=== PATIENT | female | born 1940 | race Caucasian/White ===

== ENCOUNTER → 2016-09-17 | Outpatient (CLI) | payer MEDICARE, BC ==
[2016-09-17 12:56] LABS: Basophils % (A) 0 %; CH 32.1; CHCM 34.3; Eosinophils # (A) 0.2 k/uL (0-0.7); Eosinophils % (A) 3 %; HCT 40.9 % (34.0-46.0); HDW 2.79; HGB 13.9 gm/dL (11.4-16.0); Luc # (Auto) 0.15; Luc % (Auto) 2; Lymphocytes # (A) 1.4 k/uL (1.0-4.8); Lymphocytes % (A) 22 %; MCH 32.1 pg (25.0-35.0); MCHC 34.1 g/dL (31.0-37.0); Mean Platelet Volume 6.9; Monocytes # (A) 0.4 k/uL (0-1.0); Monocytes % (A) 6 %; Neutrophils # (A) 4.2 k/uL (1.3-7.7); Neutrophils % (A) 66 %; RBC 4.35 m/uL (3.80-5.40); RDW 12.3 % (11.5-15.5); WBC 6.3 k/uL (3.8-10.6); WBC (Perox) 6.33
[2016-09-17 16:21] LABS: Erythrocyte Sedimentation Rate 4 mm/hr (0-20)
== END | disposition home or self-care (01) ==
LOC: LABWHC1 12:07
PROVIDERS: ATTEND Orthopaedic Surgery Foot and Ankle Surgery
DX: S92.062D Displaced intraarticular fracture of left calcaneus, subsequent encounter for fracture with routine healing (principal); M19.172 Post-traumatic osteoarthritis, left ankle and foot
CPT/HCPCS: 36415; 85025; 85652; 86140

== ENCOUNTER → 2016-09-21 | Outpatient (CLI) | payer MEDICARE, BC ==
--- NOTE | 2016-09-21 19:51 | CT ---
EXAMINATION TYPE: CT foot LT wo con DATE OF EXAM: 09/21/2016 6:31 PM COMPARISON: 01/23/2015 HISTORY: Left heel pain CT DLP: 151.4 mGycm Automated exposure control for dose reduction was used. FINDINGS: There is hardware fixing an old fracture of the calcaneus. There is extensive osteoarthritis on both sides of the subtalar joint. There are erosions and cystic changes. The ankle mortise is anatomic. Th e tarsal bones appear intact. The metatarsals are intact. There is slight deformity of the distal fif th metatarsal that could relate to an old healed fracture. IMPRESSION: THERE IS MODERATELY SEVERE POSTTRAUMATIC SUBTALAR JOINT OSTEOARTHRITIS. OLD HEALED FRACTURE OF THE CA LCANEUS. THERE IS SATISFACTORY HEALING OF THE FRAGMENTS COMPARED TO OLD EXAM. THERE IS SOME MILD OSTEOARTHRITIS AT THE FIRST MP JOINT. THERE IS PROBABLY AN OLD HEALED FRACTURE DIS SAUL FIFTH METATARSAL.
== END | disposition home or self-care (01) ==
LOC: RADCTMAIN 17:52
PROVIDERS: ATTEND Orthopaedic Surgery Foot and Ankle Surgery
DX: M19.172 Post-traumatic osteoarthritis, left ankle and foot (principal); M19.072 Primary osteoarthritis, left ankle and foot

== ENCOUNTER → 2016-12-15 | Outpatient (CLI) | payer MEDICARE, BC ==
--- NOTE | 2016-12-15 11:15 | MM ---
Reason for exam: follow-up at short interval from prior study. Last mammogram was performed 1 year ago. History: Patient is postmenopausal. Benign US breast aspiration single LT of the left breast, November 19, 2014. Cyst aspiration of the left breast. Cyst aspiration of the right breast. 2 excisional biopsies of the left breast. Excisional biopsy of the right breast. Took estrogen for 24 years. Took progesterone for 24 years. Physical Findings: Nurse did not find any significant physical abnormalities on exam. MG 3D Diag Mammo W/Cad CRISTY Bilateral CC and MLO view(s) were taken. LM, MLO with magnification, and CC with magnification view(s) were taken of the left breast. Prior study comparison: May 07, 2016, right breast US breast RT. December 13, 2015, right breast US breast RT. December 06, 2015, bilateral MG 3d diag mammo w/cad CRISTY. October 26, 2014, bilateral MG screening mammo w CAD. The breast tissue is heterogeneously dense. This may lower the sensitivity of mammography. Finding #1: There is a 25 mm circumscribed round mass in the left breast. Finding #2: There are typically benign vascular calcifications in both breasts. Previous mammotome biopsy in the left breast. There is a chronic nodularity bilaterally. Suspicious heterogeneous group of calcifications in the left breast middle posterior depth upper slight medial aspect, new from old studies. Increase in size but history of multiple cysts bilaterally since May 07, 2016, December 13, 2015, December 06, 2015, and October 26, 2014. These results were verbally communicated with the patient and result sheet given to the patient on 12/15/16. ASSESSMENT: Suspicious, BI-RAD 4 RECOMMENDATION: Stereotactic core biopsy of the left breast. Called Dr. Castellanos with mammographic findings and has scheduled an appointment for the patient for 12/22/16 at 10:[address] De La Garza. PRELIMINARY REPORT CALLED AND FAXED TO DR. DE LA GARZA ON 12/15/16/TP.
--- NOTE | 2016-12-15 11:21 | USB ---
Reason for exam: follow-up at short interval from prior study. History: Patient is postmenopausal. Benign US breast aspiration single LT of the left breast, November 19, 2014. Cyst aspiration of the left breast. Cyst aspiration of the right breast. 2 excisional biopsies of the left breast. Excisional biopsy of the right breast. Took estrogen for 24 years. Took progesterone for 24 years. US Breast RT Right breast ultrasound includes all four quadrants, the retroareolar region and axilla. Finding demonstrates a 0.3 x 0.7 x 0.5cm cluster too small to characterize at 2 o'clock, a 0.6 x 0.5 x 0.4cm oval, irregular, cystic lesion at 7 o'clock, a 0.7 x 0.6 x 0.3cm oval, irregular, hypoechoic lesion at 7 o'clock, a 0.5 x 0.4 x 0.4cm oval, cystic lesion at 8 o'clock, a 0.7 x 0.8 x 0.7cm oval, irregular, cystic lesion at 9 o'clock, a 1.3 x 1.1 x 0.7cm oval, cystic lesion at 10 o'clock, a 1.7 x 1.4 x 1.0cm cystic, oval lesion at the right nipple retroareolar position and a 0.8 x 0.3 x 0.3cm mixed, oval lesion at the retroareolar position. These results were verbally communicated with the patient and result sheet given to the patient on 12/15/16. ASSESSMENT: Benign, BI-RAD 2 RECOMMENDATION: Stereotactic core biopsy. (left breast) Called Dr. Castellanos with mammographic findings and has scheduled an appointment for the patient for 12/22/16 at 10:[address] De La Garza. PRELIMINARY REPORT CALLED AND FAXED TO DR. DE LA GARZA ON 12/15/16/TP.
== END | disposition home or self-care (01) ==
LOC: RADMAMWWP 08:57
PROVIDERS: ATTEND Family Medicine
DX: R92.8 Other abnormal and inconclusive findings on diagnostic imaging of breast (principal)
CPT/HCPCS: 76641; G0204; G0279

== ENCOUNTER → 2016-12-29 | Day surgery (SDC) | payer MEDICARE, BC ==
[2016-12-29 07:52] VITALS: RESP 16; BMI 22.6
[2016-12-29 09:04] VITALS: BP 152/79; PULSE 61; TEMP 97.3
--- NOTE | 2016-12-29 16:53 | MM ---
EXAMINATION TYPE: MG stereo VAD BX LT DATE OF EXAM: 12/29/2016 COMPARISON: 12/15/2016 CLINICAL HISTORY: 76-year-old female referred for biopsy left breast microcalcifications. TECHNIQUE: Stereotactic guided core biopsy of the left breast. FINDINGS: The procedure of stereotactic guided core biopsy was explained to the patient. Benefits, a lternatives, and risks were discussed. An informed consent was then obtained. The shortness pathway for biopsy was chosen. Shortness pathway was a CC from above approach. I perfo rmed the localization, then surgeon, Dr. De La Garza performed the remainder of the procedure. A vacu um assisted biopsy gun was used to obtain 5 core samples. The patient tolerated the procedure well without any immediate complication. The patient was kept in the radiology department for short stay after the procedure and then discharged home in stable condi tion. Targeted calcifications are identified in specimen mammogram. Post biopsy mammogram shows slight 5 to 10 mm of superior migration. Some residual microcalcification s kevin the site of biopsy. IMPRESSION: SUCCESSFUL, UNCOMPLICATED STEREOTACTIC GUIDED CORE BIOPSY OF 10:00 LEFT BREAST MICROCALCIFICATIONS. N OTE SLIGHT 5 TO 10 MM OF SUPERIOR CLIP MIGRATION; FULL PATHOLOGY RESULTS TO FOLLOW.
--- NOTE | 2016-12-30 06:38 | PCN ---
PREPROCEDURE DIAGNOSIS: Suspicious mammogram calcification left breast. POSTPROCEDURE DIAGNOSIS: Defer to pathology. PROCEDURE: Mammotome biopsy, clip application. This patient presented with abnormal mammogram. Left breast showed suspicious calcification. The patient was taken to [facility], placed on the mammotome table in prone position. After coordinates were obtained by the radiologist, the skin was cleaned with Betadine and infiltrating the skin with Marcaine 0.25% plain, the mammotome needle was advanced according to the coordinates. Multiple cores were taken. A clip was placed for further identification of the area. The core x-ray showed all the calcification in the specimen. The patient tolerated the procedure well. KALYAN
== END ==
LOC: RADMAMWWP 07:23
PROVIDERS: ATTEND Surgery
DX: N60.32 Fibrosclerosis of left breast (principal); R92.8 Other abnormal and inconclusive findings on diagnostic imaging of breast; N64.89 Other specified disorders of breast; N60.82 Other benign mammary dysplasias of left breast; Z88.2 Allergy status to sulfonamides; R92.0 Mammographic microcalcification found on diagnostic imaging of breast
CPT/HCPCS: 88305; 88342; 88341; 19081; A4648; J2001

== ENCOUNTER → 2017-10-21 | Outpatient (CLI) | payer MEDICARE, BC ==
--- NOTE | 2017-10-21 13:46 | MM ---
Reason for exam: additional evaluation requested from prior study. Last mammogram was performed 10 months ago. History: Patient is postmenopausal and has history of breast cancer at age 76. Malignant MG stereo VAD BX LT of the left breast, December 29, 2016. Benign US breast aspiration single LT of the left breast, November 19, 2014. Cyst aspiration of the left breast. Cyst aspiration of the right breast. 2 excisional biopsies of the left breast. Excisional biopsy of the right breast. Taking estrogen for 24 years. Taking progesterone for 24 years. Physical Findings: Nurse did not find any significant physical abnormalities on exam. MG 3D Diag Mammo W/Cad CRISTY Bilateral CC and MLO view(s) were taken. Prior study comparison: December 15, 2016, bilateral MG 3d diag mammo w/cad CRISTY. December 06, 2015, bilateral MG 3d diag mammo w/cad CRISTY. Finding #1: Ne architectural distortion in the upper inner quadrant, posterior position of the left breast consistent with known interval lumpectomy. Finding #2: There are typically benign vascular calcifications in both breasts. Previous mammotome biopsy in the left breast. There is no discrete abnormality. These results were verbally communicated with the patient and result sheet given to the patient on 10/21/17. ASSESSMENT: Benign, BI-RAD 2 RECOMMENDATION: Follow-up diagnostic mammogram of both breasts in 1 year.
== END | disposition home or self-care (01) ==
LOC: RADMAMWWP 12:44
PROVIDERS: ATTEND Family Medicine
DX: N60.11 Diffuse cystic mastopathy of right breast (principal); N60.12 Diffuse cystic mastopathy of left breast
CPT/HCPCS: 77066; G0279; 77062

== ENCOUNTER → 2017-11-11 | Outpatient (CLI) | payer MEDICARE, BC ==
[~2017-11-11] MED LIST: DENOSUMAB 60 MG/ML 1 ML SYRINGE SQ ONE
[2017-11-11 10:18] VITALS: BP 128/72; PULSE 100; RESP 16; TEMP 98.4
== END | disposition home or self-care (01) ==
LOC: PROCWHC3 10:04
PROVIDERS: ATTEND Family Medicine
DX: M81.0 Age-related osteoporosis without current pathological fracture (principal)
CPT/HCPCS: 96372; J0897

== ENCOUNTER 2018-02-20 08:45 | Emergency (ER) | payer MEDICARE, BC ==
[2018-02-20 08:52] VITALS: BP 157/87; PULSE 99; RESP 18; TEMP 98
[2018-02-20] MEDS ORDERED: methylPREDNISolone SOD SUCCI 125 MG/2 ML VIAL IM ONE (09:05)
--- NOTE | 2018-02-20 09:14 | ED ---
Skin/Abscess/FB HPI - General Chief complaint: Skin/Abscess/Foreign Body Stated complaint: Rash Time Seen by Provider: 02/20/18 08:53 Source: patient, RN notes reviewed, old records reviewed Mode of arrival: ambulatory Limitations: no limitations - History of Present Illness Initial comments: Patient is a 77-year-old female presents emergency department today with chief complaint of a rash over her left ear. Patient reports that she has had had a rash one week ago after weeding her garden. She states it is now spread to her arms and her neck and other side of her face. Patient's extensive treatment. It. She seen by her PCP and started on Medrol Dosepak days ago. She has 2 days left of steroids. She's also started on eardrops, steroid cream, antibiotic cream. She reports that yesterday she returned and she was seen by PCP again. They started her on Keflex. She's had one day of this dose. Patient was concerned because seems to be progressively itching and seems to be getting worse. Patient reports that she was on how she has any contact with poison sabrina. - Related Data Home Medications Medication Instructions Recorded Confirmed Aspirin EC [Ecotrin] 164 mg PO DAILY 01/19/15 11/11/17 Cetirizine HCl 10 mg PO DAILY 01/19/15 11/11/17 FLUoxetine HCL [PROzac] 20 mg PO DAILY 01/19/15 11/11/17 Fish Oil/Dha/Epa [Fish Oil 1,200 1 each PO DAILY 01/19/15 11/11/17 mg Fish Oil] Fluticasone/Salmeterol [Advair 1 inhalation PO BID 01/19/15 11/11/17 250-50 Diskus] Levothyroxine Sodium [Synthroid] 75 mcg PO DAILY 01/19/15 11/11/17 Medroxyprogesterone Acetate 2.5 mg PO DAILY 01/19/15 11/11/17 [Provera] Albuterol Inhaler [Ventolin Hfa 1 - 2 puff INHALATION Q6HR PRN 12/22/16 11/11/17 Inhaler] Estradiol 0.5 mg PO DAILY 12/22/16 11/11/17 Multivit-Min/Iron/Folic/Lutein 1 each PO DAILY 12/22/16 11/11/17 [Centrum Silver Women Tablet] Denosumab [Prolia] 60 mg SQ ONCE 05/11/17 11/11/17 Previous Rx's Medication Instructions Recorded predniSONE 10 mg PO DAILY #30 tab 02/20/18 Allergies Allergy/AdvReac Type Severity Reaction Status Date / Time Sulfa (Sulfonamide Allergy Unknown Verified 02/20/18 08:48 Antibiotics) Review of Systems ROS Statement: Those systems with pertinent positive or pertinent negative responses have been documented in the HPI. ROS Other: All systems not noted in ROS Statement are negative. Past Medical History Past Medical History: Asthma, Hypertension, Thyroid Disorder History of Any Multi-Drug Resistant Organisms: None Reported Past Surgical History: Back Surgery, Orthopedic Surgery Additional Past Surgical History / Comment(s): rods implanted from cervical to lumbar spine, left calcaneous sx with screws/plate implanted , L foot x 2 Past Anesthesia/Blood Transfusion Reactions: No Reported Reaction Additional Past Anesthesia/Blood Transfusion Reaction / Comment(s): had one blood transfusion in 1984 following spinal sx, no reactions noted. Past Psychological History: No Psychological Hx Reported Smoking Status: Never smoker Past Alcohol Use History: Daily Past Drug Use History: None Reported - Past Family History Brother(s) Family Medical History: Hypertension General Exam - General Exam Comments Initial Comments: his is a 77-year-old female. Alert and oriented. No acute distress. Limitations: no limitations Head exam: Present: atraumatic, normocephalic, normal inspection Eye exam: Present: normal appearance, PERRL, EOMI. Absent: scleral icterus, conjunctival injection, periorbital swelling ENT exam: Present: normal exam, mucous membranes moist. Absent: TM's normal bilaterally (Patient has erythema and dry skin over the left pinna of her ear. Looks like there is overlying impetigo.) Neck exam: Present: normal inspection. Absent: tenderness, meningismus, lymphadenopathy Respiratory exam: Present: normal lung sounds bilaterally. Absent: respiratory distress, wheezes, rales, rhonchi, stridor Cardiovascular Exam: Present: regular rate, normal rhythm, normal heart sounds. Absent: systolic murmur, diastolic murmur, rubs, gallop, clicks GI/Abdominal exam: Present: soft, normal bowel sounds. Absent: distended, tenderness, guarding, rebound, rigid Extremities exam: Present: normal inspection, full ROM, normal capillary refill , other (has an erythematous blisterlike rash over the right forearm. Excoriations. Linear pattern concerning for poison sabrina or poison oak exposure.) . Absent: tenderness, pedal edema, joint swelling, calf tenderness Back exam: Present: normal inspection Neurological exam: Present: alert, oriented X3, CN II-XII intact Psychiatric exam: Present: normal affect, normal mood Skin exam: Present: warm, dry, intact, normal color. Absent: rash Course Vital Signs 02/20/18 08:48 Temperature 98.0 F Pulse Rate 99 Respiratory 18 Rate Blood Pressure 157/87 O2 Sat by Pulse 99 Oximetry Medical Decision Making - Medical Decision Making 77-year-old female presents with left earache itching, so some crusting dry skin. She has the area of rashing spreading to the right forearm and over her neck. She is exposed to leave one week ago her garden. She was seen by her PCP and started on steroids and antibiotics. This was one day ago. At this time I discussed that we need to increase her steroid dose and have her discontinue Medrol Dosepak. I'll put the Patient on prednisone taper. Patient has no fevers or chills. She doesn't wish is also an overlying impetigo. She is very started on Keflex and mupirocin cream. Disposition Clinical Impression: Poison sabrina dermatitis, Impetigo Disposition: HOME SELF-CARE Condition: Good Additional Instructions: Patient adviseds follow-up with primary care physician. Return to emergency department if any alarming signs or symptoms occur. Continue the other medication as prescribed. Discontinue using the Medrol Dosepak and use the steroid pack that I have prescribed. Patient should also look into poison sabrina soap. Prescriptions: predniSONE 10 mg PO DAILY #30 tab Is patient prescribed a controlled substance at d/c from ED?: No Referrals: Omari Castellanos MD [Primary Care Provider] - 1-2 days Time of Disposition: 09:12
== END 2018-02-20 09:20 | disposition home or self-care (01) ==
LOC: EC 08:45
DX: L23.7 Allergic contact dermatitis due to plants, except food (principal); L01.00 Impetigo, unspecified; J45.909 Unspecified asthma, uncomplicated; I10 Essential (primary) hypertension; Z79.82 Long term (current) use of aspirin; Z79.51 Long term (current) use of inhaled steroids; Z79.899 Other long term (current) drug therapy; Z88.2 Allergy status to sulfonamides
CPT/HCPCS: 99283; 96372; J2930

== ENCOUNTER → 2018-06-02 | Outpatient (CLI) | payer MEDICARE, BC ==
[2018-06-02 15:22] VITALS: BP 156/82; PULSE 67; RESP 16; TEMP 97.7
== END | disposition home or self-care (01) ==
LOC: PROCWHC3 14:58
PROVIDERS: ATTEND Family Medicine
DX: M81.0 Age-related osteoporosis without current pathological fracture (principal)
CPT/HCPCS: 96372; J0897

== ENCOUNTER → 2018-10-27 | Outpatient (CLI) | payer MEDICARE, BC ==
--- NOTE | 2018-10-27 14:48 | MM ---
Reason for exam: additional evaluation requested from prior study. Last mammogram was performed 1 year ago. History: Patient is postmenopausal and has history of breast cancer at age 76. Malignant MG stereo VAD BX LT of the left breast, December 29, 2016. Benign US breast aspiration single LT of the left breast, November 19, 2014. Cyst aspiration of the left breast. Cyst aspiration of the right breast. 2 excisional biopsies of the left breast. Excisional biopsy of the right breast. Taking estrogen for 25 years. Taking progesterone for 25 years. Physical Findings: Nurse did not find any significant physical abnormalities on exam. MG 3D Diag Mammo W/Cad CRISTY Bilateral CC and MLO view(s) were taken. Spot compression CC and spot compression MLO view(s) were taken of the right breast. Prior study comparison: October 21, 2017, bilateral MG 3d diag mammo w/cad CRISTY. December 15, 2016, bilateral MG 3d diag mammo w/cad CRISTY. The breast tissue is extremely dense which could obscure a lesion on mammography. Benign appearing bilateral calcifications. Left biopsy marker. Right upper outer quadrant middle depth focal asymmetry persist on additional views, ultrasound will be performed. Right lower inner quadrant middle depth small focus of distortion resolves on additional views. These results were verbally communicated with the patient and result sheet given to the patient on 10/27/18. ASSESSMENT: Incomplete: need additional imaging evaluation, BI-RAD 0 RECOMMENDATION: Ultrasound of the right breast. (upper outer quadrant)
--- NOTE | 2018-10-27 14:55 | USB ---
Reason for exam: additional evaluation requested from abnormal screening. History: Patient is postmenopausal and has history of breast cancer at age 76. Malignant MG stereo VAD BX LT of the left breast, December 29, 2016. Benign US breast aspiration single LT of the left breast, November 19, 2014. Cyst aspiration of the left breast. Cyst aspiration of the right breast. 2 excisional biopsies of the left breast. Excisional biopsy of the right breast. Taking estrogen for 25 years. Taking progesterone for 25 years. US Breast Limited RT Right limited breast ultrasound including focal area of concern, retroareolar and axilla demonstrates a 1.4 x 0.8 x 1.1cm cystic lesion at 9 o'clock, a 1.1 x 0.4 x 0.8cm cystic, ductal, benign lesion at 9 o'clock, a 0.8 x 0.3 x 0.7cm mixed lesion at 10 o'clock, minimal increase through transmission, 6 month follow up recommended and a 0.7 x 0.7 x 1.4cm cystic benign lesion at 10 o'clock. These results were verbally communicated with the patient and result sheet given to the patient on 10/27/18. ASSESSMENT: Probably benign, BI-RAD 3 RECOMMENDATION: Ultrasound of the right breast in 6 months. (10 o'clock)
== END ==
LOC: RADMAMWWP 12:50
PROVIDERS: ATTEND Family Medicine
DX: Z08 Encounter for follow-up examination after completed treatment for malignant neoplasm (principal); Z85.3 Personal history of malignant neoplasm of breast
CPT/HCPCS: 77066; 76642; G0279; 77062

== ENCOUNTER → 2018-12-06 | Outpatient (CLI) | payer MEDICARE, BC ==
[~2018-12-06] MED LIST changes: +DENOSUMAB 60 MG/ML 1 ML SYRINGE SQ NR; -DENOSUMAB 60 MG/ML 1 ML SYRINGE SQ ONE
[2018-12-06 10:00] VITALS: BP 136/74; PULSE 71; RESP 16; TEMP 97.9
== END | disposition home or self-care (01) ==
LOC: PROCWHC3 09:14
PROVIDERS: ATTEND Family Medicine
DX: M81.0 Age-related osteoporosis without current pathological fracture (principal)
CPT/HCPCS: 96372; J0897

== ENCOUNTER → 2019-04-19 | Outpatient (CLI) | payer MEDICARE, BC | END | disposition home or self-care (01) | LOC: NEUROMAIN 06:44 | PROVIDERS: ATTEND Otolaryngology | DX: R42 Dizziness and giddiness (principal) | CPT/HCPCS: 92537; 92540 ==

== ENCOUNTER → 2019-05-12 | Outpatient (CLI) | payer MEDICARE, BC ==
--- NOTE | 2019-05-12 11:20 | USB ---
Reason for exam: follow-up at short interval from prior study. History: Patient is postmenopausal and has history of breast cancer at age 76. Malignant MG stereo VAD BX LT of the left breast, December 29, 2016. Benign US breast aspiration single LT of the left breast, November 19, 2014. Cyst aspiration of the left breast. Cyst aspiration of the right breast. 2 excisional biopsies of the left breast. Excisional biopsy of the right breast. Taking estrogen for 25 years. Taking progesterone for 25 years. Physical Findings: Nurse did not find any significant physical abnormalities on exam. US Breast Limited RT Technologist: Alba Jordan Right limited breast ultrasound including focal area of concern, retroareolar and axilla demonstrates a 0.6 x 0.5 x 0.6cm cystic lesion at 9 o'clock, a 1.1 x 1.0 x 0.7cm cystic, ductal lesion at 9 o'clock, a 0.5 x 0.4 x 0.3cm cystic cluster at 10 o'clock, a 0.8 x 0.7 x 0.4cm cystic lesion at 10 o'clock and ducts at posterior nipple. These results were verbally communicated with the patient and result sheet given to the patient on 05/12/19. ASSESSMENT: Benign, BI-RAD 2 RECOMMENDATION: Follow-up diagnostic mammogram of both breasts in 5 months. Back on schedule for October 2019.
== END | disposition home or self-care (01) ==
LOC: RADUSWWP 08:31
PROVIDERS: ATTEND Family Medicine
DX: R92.8 Other abnormal and inconclusive findings on diagnostic imaging of breast (principal)

== ENCOUNTER → 2019-06-12 | Outpatient (CLI) | payer BC, MEDICARE ==
[~2019-06-12] MED LIST changes: -DENOSUMAB 60 MG/ML 1 ML SYRINGE SQ NR; +DENOSUMAB 60 MG/ML 1 ML SYRINGE SQ ONE
[2019-06-12 09:53] VITALS: BP 157/80; PULSE 84; RESP 16; TEMP 98.1
== END | disposition home or self-care (01) ==
LOC: PROCWHC3 09:32
PROVIDERS: ATTEND Family Medicine
DX: M81.0 Age-related osteoporosis without current pathological fracture (principal)
CPT/HCPCS: 96372; J0897

== ENCOUNTER → 2019-10-31 | Outpatient (CLI) | payer MEDICARE, OTHER ==
--- NOTE | 2019-11-02 08:53 | MM ---
Reason for exam: additional evaluation requested from prior study. Last mammogram was performed 1 year ago. History: Patient is postmenopausal and has history of breast cancer at age 76. Malignant MG stereo VAD BX LT of the left breast, December 29, 2016. Benign US breast aspiration single LT of the left breast, November 19, 2014. Cyst aspiration of the left breast. Cyst aspiration of the right breast. 2 excisional biopsies of the left breast. Excisional biopsy of the right breast. Taking estrogen for 26 years. Taking progesterone for 26 years. Physical Findings: Nurse did not find any significant physical abnormalities on exam. MG 3D Diag Mammo W/Cad CRISTY Bilateral CC and MLO view(s) were taken. Prior study comparison: October 27, 2018, bilateral MG 3d diag mammo w/cad CRISTY. October 21, 2017, bilateral MG 3d diag mammo w/cad CRISTY. December 15, 2016, bilateral MG 3d diag mammo w/cad CRISTY. December 06, 2015, bilateral MG 3d diag mammo w/cad CRISTY. Finding: There is a 25 mm high density, oval mass in the 5 o'clock position of the left breast consistent with possible cyst/mass. These results were verbally communicated with the patient and result sheet given to the patient on 10/31/19. ASSESSMENT: Incomplete: need additional imaging evaluation, BI-RAD 0 RECOMMENDATION: Ultrasound of the left breast.
--- NOTE | 2019-11-02 08:57 | USB ---
Reason for exam: additional evaluation requested from abnormal screening. History: Patient is postmenopausal and has history of breast cancer at age 76. Malignant MG stereo VAD BX LT of the left breast, December 29, 2016. Benign US breast aspiration single LT of the left breast, November 19, 2014. Cyst aspiration of the left breast. Cyst aspiration of the right breast. 2 excisional biopsies of the left breast. Excisional biopsy of the right breast. Taking estrogen for 26 years. Taking progesterone for 26 years. US Breast LT Technologist: Alba Jordan Left complete breast ultrasound includes all four quadrants, the retroareolar region and axilla. Finding demonstrates a 0.7 x 0.6 x 0.4cm cystic cluster at 1 o'clock, a 0.9 x 0.9 x 0.7cm cystic lesion at 3 o'clock, a 1.0 x 0.8 x 0.6cm solid, hypoechoic lesion at 3 o'clock for which a biopsy is recommended, a 1.7 x 1.6 x 1.0cm lesion at 4 o'clock, a 0.6 x 0.5 x 0.5cm lesion at 8 o'clock and a 0.7 x 0.7 x 0.6cm cystic cluster at 10 o'clock. These results were verbally communicated with the patient and result sheet given to the patient on 10/31/19. ASSESSMENT: Suspicious, BI-RAD 4 RECOMMENDATION: Surgical consultation and ultrasound core biopsy of the left breast. Called Dr. Castellanos's office with mammographic findings and has scheduled an appointment for the patient for 11/22/19 at 10:[address] Larson. Biopsy scheduled for 11/15/19 at 8:00. PRELIMINARY REPORT CALLED AND FAXED TO DR. LARSON ON 11/02/19.
== END | disposition home or self-care (01) ==
LOC: RADMAMWWP 10:40
PROVIDERS: ATTEND Family Medicine
DX: R92.8 Other abnormal and inconclusive findings on diagnostic imaging of breast (principal); N60.01 Solitary cyst of right breast
CPT/HCPCS: 77066; 76641; G0279; 77062

== ENCOUNTER → 2019-11-13 | Outpatient (CLI) | payer MEDICARE, OTHER | END | disposition home or self-care (01) | LOC: LABWHC1 08:29 | PROVIDERS: ATTEND Student in an Organized Health Care Education/Training Program | DX: Z11.59 Encounter for screening for other viral diseases (principal) ==

== ENCOUNTER → 2019-11-15 | Day surgery (SDC) | payer MEDICARE, OTHER ==
[2019-11-15 07:24] VITALS: RESP 16; TEMP 98.1
[2019-11-15 08:33] VITALS: BP 145/89; PULSE 65
--- NOTE | 2019-11-15 09:02 | USB ---
ULTRASOUND GUIDED CORE BIOPSY 3:00 LEFT BREAST LESION: CLINICAL HISTORY: 3:00 left breast lesion FINDINGS: The procedure was explained to the patient. The risks, complications, benefits and alternatives were discussed and any questions were answered. Informed consent was obtained. Patient was placed supine on the ultrasound table and prepped and draped in the usual sterile fashion. Utilizing a 16 gauge needle, five passes were made into the requested left breast nodule. Surgical clip was perhaps procedure. Mammogram placed post procedure demonstrates ideal placement of clip. Patient was stable throughout the procedure. Pathology is pending. All elements of maximal barrier technique were utilized. IMPRESSION: 1. Successful ultrasound core biopsy of the requested left breast lesion. Pathology Results: Benign LEFT BREAST, THREE O'CLOCK, ULTRASOUND GUIDED CORE BIOPSY: Benign breast with nodular scar/fat necrosis and mild chronic inflammation. Recommendation Follow up ultrasound of the left breast in 6 months. 6 month follow up ultrasound for other areas seen in the left breast (3:00, 8:00 and 10:00) on the 10/31/19 ultrasound. KALYAN
--- NOTE | 2019-11-16 07:50 | MM ---
Reason for exam: additional evaluation requested from abnormal screening. Last mammogram was performed less than 1 month ago. History: Patient is postmenopausal and has history of breast cancer at age 76. Malignant MG stereo VAD BX LT of the left breast, December 29, 2016. Benign US breast aspiration single LT of the left breast, November 19, 2014. Cyst aspiration of the left breast. Cyst aspiration of the right breast. 2 excisional biopsies of the left breast. Excisional biopsy of the right breast. Taking estrogen for 26 years. Taking progesterone for 26 years. MG Diagnostic Mammo LT Wo CAD CC and MLO view(s) were taken of the left breast. Prior study comparison: October 31, 2019, bilateral MG 3d diag mammo w/cad CRISTY. October 27, 2018, bilateral MG 3d diag mammo w/cad CRISTY. ASSESSMENT: Post procedure mammogram for marker placement RECOMMENDATION: Ultrasound of the left breast in 6 months. PENDING PATHOLOGY RESULTS.
== END ==
LOC: RADUSWWP 07:06
PROVIDERS: ATTEND Student in an Organized Health Care Education/Training Program
DX: N61.0 Mastitis without abscess (principal); N64.1 Fat necrosis of breast
CPT/HCPCS: 88305; 77065; 19083; A4648; J2001

== ENCOUNTER → 2019-12-12 | Outpatient (CLI) | payer MEDICARE, OTHER ==
[~2019-12-12] MED LIST changes: +DENOSUMAB 60 MG/ML 1 ML SYRINGE SQ NR; -DENOSUMAB 60 MG/ML 1 ML SYRINGE SQ ONE
[2019-12-12 14:12] VITALS: BP 123/63; PULSE 63; RESP 16; TEMP 97.8
== END | disposition home or self-care (01) ==
LOC: PROCWHC3 14:01
PROVIDERS: ATTEND Family Medicine
DX: M81.0 Age-related osteoporosis without current pathological fracture (principal)
CPT/HCPCS: 96372; J0897

== ENCOUNTER → 2020-05-17 | Outpatient (CLI) | payer MEDICARE, OTHER ==
--- NOTE | 2020-05-17 10:26 | USB ---
Reason for exam: follow-up at short interval from prior study. History: Patient is postmenopausal and has history of breast cancer at age 76. Benign US breast needle core LT of the left breast, November 15, 2019. Malignant MG stereo VAD BX LT of the left breast, December 29, 2016. Benign US breast aspiration single LT of the left breast, November 19, 2014. Cyst aspiration of the left breast. Cyst aspiration of the right breast. 2 excisional biopsies of the left breast. Excisional biopsy of the right breast. Taking estrogen for 26 years. Taking progesterone for 26 years. Physical Findings: Nurse did not find any significant physical abnormalities on exam. US Breast Limited LT Left limited breast ultrasound including focal area of concern, retroareolar and axilla demonstrates a 0.6 x 0.6 x 0.4cm hypoechoic lesion at 3 o'clock, a 2.1 x 1.0 x 2.4cm cystic lesion at 4 o'clock and a 0.6 x 0.4 x 0.6cm cystic cluster at 8 o'clock. These results were verbally communicated with the patient and result sheet given to the patient on 05/17/20. ASSESSMENT: Probably benign, BI-RAD 3 RECOMMENDATION: Follow-up diagnostic mammogram of both breasts in 6 months. Ultrasound of the left breast in 6 months.
== END | disposition home or self-care (01) ==
LOC: RADUSWWP 09:09
PROVIDERS: ATTEND Family Medicine
DX: R92.8 Other abnormal and inconclusive findings on diagnostic imaging of breast (principal)

== ENCOUNTER → 2020-06-14 | Outpatient (CLI) | payer MEDICARE, OTHER ==
[2020-06-14 09:14] VITALS: BP 153/74; PULSE 83; RESP 16; TEMP 98.1
== END | disposition home or self-care (01) ==
LOC: PROCWHC3 08:53
PROVIDERS: ATTEND Family Medicine
DX: M81.0 Age-related osteoporosis without current pathological fracture (principal)
CPT/HCPCS: 96372; J0897

== ENCOUNTER → 2020-10-25 | Outpatient (CLI) | payer MEDICARE, OTHER ==
--- NOTE | 2020-10-25 15:57 | CT ---
EXAMINATION TYPE: CT sinus wo con DATE OF EXAM: 10/25/2020 COMPARISON: none HISTORY: Benign paroxysmal bilateral vertigo. CT DLP: 575.[address] of the paranasal sinuses was performed in the axial and coronal planes. Bone and soft tissue settings are submitted. The paranasal sinuses demonstrate normal aeration and development. The paranasal sinuses are free of mucosal thickening or air fluid level. The osteal meatal units are patent bilaterally. The nasal septum is midline. No bony destructive changes are seen within the field of view. IMPRESSION: Normal unenhanced CT of the paranasal sinuses.
== END | disposition home or self-care (01) ==
LOC: RADCTMAIN 15:27
PROVIDERS: ATTEND Family Medicine
DX: R42 Dizziness and giddiness (principal)
CPT/HCPCS: 70486

== ENCOUNTER → 2020-11-21 | Outpatient (CLI) | payer MEDICARE, OTHER ==
--- NOTE | 2020-11-21 15:12 | USB ---
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 Findings: Targeted left breast ultrasound was performed at 3:00, 4:00 and 8:00. In the left breast at 3:00, there is a 0.6 x 0.4 x 0.6 cm irregular hypoechoic mass which is not sign ificantly changed since the prior examination and was biopsied in November 2019 with benign pathology res ults. A simple cyst is incidentally noted in the left breast at 4:00. The previously identified lesion in the left breast at 8:00 is not seen on today's examination. IMPRESSION: No sonographic evidence for malignancy. Follow-up bilateral diagnostic mammogram is recommended in 12 months. BI-RADS 3, probably benign.
--- NOTE | 2020-11-22 08:55 | MM ---
Reason for exam: additional evaluation requested from prior study. Last mammogram was performed 1 year ago. History: Patient is postmenopausal and has history of breast cancer at age 76. Benign US breast needle core LT of the left breast, November 15, 2019. Malignant MG stereo VAD BX LT of the left breast, December 29, 2016. Benign US breast aspiration single LT of the left breast, November 19, 2014. Cyst aspiration of the left breast. Cyst aspiration of the right breast. 2 excisional biopsies of the left breast. Excisional biopsy of the right breast. Took estrogen for 26 years. Took progesterone for 26 years. Physical Findings: Nurse did not find any significant physical abnormalities on exam. MG 3D Diag Mammo W/Cad C[facility]STY Bilateral CC and MLO view(s) were taken. Prior study comparison: November 15, 2019, left breast MG diagnostic mammo LT wo CAD. October 31, 2019, bilateral MG 3d diag mammo w/cad [facility]. October 27, 2018, bilateral MG 3d diag mammo w/cad [facility]. The breast tissue is heterogeneously dense. This may lower the sensitivity of mammography. There are several groupings of fine heterogeneous calcifications in the left upper inner breast posterior depth which are not significantly changed since 2019 when accounting for different technique and follow up diagnostic mammogram in 12 months is recommended. Post operative changes on left. These results were verbally communicated with the patient and result sheet given to the patient on 11/21/20. ASSESSMENT: Incomplete: need additional imaging evaluation, BI-RAD 0 RECOMMENDATION: Ultrasound of the left breast. Left breast ultrasound recommendedfor follow up on prior ultrasound findings of 05/2020.
== END | disposition home or self-care (01) ==
LOC: RADMAMWWP 13:34
PROVIDERS: ATTEND Family Medicine
DX: D05.02 Lobular carcinoma in situ of left breast (principal); R92.1 Mammographic calcification found on diagnostic imaging of breast; Z78.0 Asymptomatic menopausal state; Z85.3 Personal history of malignant neoplasm of breast
CPT/HCPCS: 77066; 76642; G0279; 77062

== ENCOUNTER → 2020-12-13 | Outpatient (CLI) | payer MEDICARE, OTHER ==
[~2020-12-13] MED LIST changes: -DENOSUMAB 60 MG/ML 1 ML SYRINGE SQ NR; +DENOSUMAB 60 MG/ML 1 ML SYRINGE SQ ONE
[2020-12-13 10:56] VITALS: BP 169/84; PULSE 87; RESP 18; TEMP 98
== END ==
LOC: PROCWHC3 10:47
PROVIDERS: ATTEND Family Medicine
DX: M81.0 Age-related osteoporosis without current pathological fracture (principal); Z88.2 Allergy status to sulfonamides
CPT/HCPCS: 96372; J0897

== ENCOUNTER → 2021-04-08 | Outpatient (CLI) | payer MEDICARE, OTHER ==
--- NOTE | 2021-04-08 16:35 | XR ---
EXAMINATION TYPE: XR cervical spine comp DATE OF EXAM: 04/08/2021 TECHNIQUE: Frontal, lateral, oblique, and open mouth view of the cervical spine are obtained. HISTORY: G89.29 COMPARISON: None FINDINGS: The cervical spine is visualized in its entirety from C1 thru the top of T1 level, there i s grade 1 retrolisthesis C5 on C6 without evidence of acute fracture or dislocation. The pre-vertebr al soft tissue appears within normal limits. The C1-C2 articulation shows bilateral narrowing right greater than left on the open-mouth view. Vertebral body heights are maintained. Mild to moderate di sc space narrowing C4-C5 level. The oblique images confirm multilevel uncovertebral and facet degener ative changes bilaterally. Overlying soft tissue is unremarkable. IMPRESSION: As above.
--- NOTE | 2021-04-08 16:38 | XR ---
EXAMINATION TYPE: XR thoraco lumbar junction DATE OF EXAM: 04/08/2021 COMPARISON: NONE HISTORY: Mid back pain. TECHNIQUE: 2 views thoracolumbar spine. FINDINGS: Osseous structures are demineralized which is noted to lower radiographic sensitivity. Long segment Robles rods from the upper thoracic spine through the upper sacrum are partially imaged. There is underlying S-shaped scoliosis which is dextroconvex curvature in the mid thoracic spine an d levoconvex in curvature near the thoracolumbar junction. Severe compression type fracture near thor acolumbar junction is presumed chronic with diffuse sclerosis. There is likely some ossific fusion fr om the lower thoracic spine through the entire lumbar spine. Multiple overlying surgical clips are pr esent. Suboptimal evaluation of lumbar spine on lateral view due to demineralization and underpenetra tion. IMPRESSION: As above.
== END | disposition home or self-care (01) ==
LOC: RADXRMAIN 16:01
PROVIDERS: ATTEND Physician Assistant Medical
DX: M50.321 Other cervical disc degeneration at C4-C5 level (principal); M47.812 Spondylosis without myelopathy or radiculopathy, cervical region; M48.55XA Collapsed vertebra, not elsewhere classified, thoracolumbar region, initial encounter for fracture; Z98.1 Arthrodesis status
CPT/HCPCS: 72050; 72080

== ENCOUNTER → 2021-04-09 | Outpatient (CLI) | payer MEDICARE, OTHER ==
--- NOTE | 2021-04-10 02:39 | MR ---
EXAMINATION TYPE: MR brain wo con DATE OF EXAM: 04/09/2021 COMPARISON: None HISTORY: Impaiement of balance. Multiplanar multiecho imaging of the brain without contrast. FINDINGS: There is cerebral cortical atrophy. There is no mass effect nor midline shift. There is no sign of in tracranial hemorrhage. There is patchy increased signal in the periventricular white matter. There is coalescent areas that measure up to 1 cm in thickness. Diffusion images show no evidence of an acute infarct. Brainstem is intact. There is no evidence of cerebellar mass. The internal auditory canals appear nor mal. There is no evidence of cerebellopontine angle mass. IMPRESSION: Cerebral atrophy. Extensive periventricular white matter changes probably related to chronic small ve ssel ischemia. No focal posterior fossa abnormality. Demyelinating disease not excluded.
== END | disposition home or self-care (01) ==
LOC: RADMRIMAIN 20:52
PROVIDERS: ATTEND Family Medicine
DX: G31.9 Degenerative disease of nervous system, unspecified (principal)
CPT/HCPCS: 70551

== ENCOUNTER → 2021-11-17 | Outpatient (CLI) | payer MEDICARE, OTHER ==
--- NOTE | 2021-11-17 10:49 | US ---
EXAMINATION TYPE: US carotid duplex BILAT DATE OF EXAM: 11/17/2021 COMPARISON: NONE CLINICAL HISTORY: R42 Dizziness. Dizziness EXAM MEASUREMENTS: RIGHT: Peak Systolic Velocity (PSV) cm/sec ----- Right CCA: 73.8 ----- Right ICA: 73.8 ----- Right ECA: 66.0 ICA/CCA ratio: 1.0 RIGHT: End Diastole cm/sec ----- Right CCA: 18.0 ----- Right ICA: 23.2 ----- Right ECA: 0.0 LEFT: Peak Systolic Velocity (PSV) cm/sec ----- Left CCA: 75.4 ----- Left ICA: 60.7 ----- Left ECA: 61.6 ICA/CCA ratio: 0.8 LEFT: End Diastole cm/sec ----- Left CCA: 25.9 ----- Left ICA: 20.6 ----- Left ECA: 12.7 VERTEBRALS (direction of flow): Right Vertebral: Antegrade Left Vertebral: Antegrade Rhythm: Normal No significant stenosis seen IMPRESSION: No evidence for hemodynamically significant stenosis Criteria for Assigning % of Stenosis / Diameter reduction (Estimation based on the indirect measurements of the internal carotid artery velocities (ICA PSV). 1. Normal (no stenosis)=ICA PSV < 125 cm/s: ratio < 2.0: ICA EDV<40 cm/s. 2. Less than 50% stenosis=ICA PSV < 125 cm/s: ratio < 2.0: ICA EDV<40 cm/s. 3. 50 to 69% stenosis=ICA PSV of 125 to 230 cm/s: ration 2.0 ? 4.0: ICA EDV 40-100 cm/s. 4. Greater than 70% stenosis to near occlusion= ICA PSV > 230 cm/s: ratio > 4.0: ICA EDV > 100 cm/s. 5. Near occlusion= ICA PSV velocities may be low or undetectable: variable ratio and ICA EDV. 6. Total occlusion=unable to detect flow.
== END | disposition home or self-care (01) ==
LOC: RADUSWWP 10:16
PROVIDERS: ATTEND Family Medicine
DX: R42 Dizziness and giddiness (principal)
CPT/HCPCS: 93880

== ENCOUNTER → 2022-01-01 | Outpatient (CLI) | payer MEDICARE, OTHER ==
[~2022-01-01] MED LIST changes: +DENOSUMAB 60 MG/ML 1 ML SYRINGE SQ NR; -DENOSUMAB 60 MG/ML 1 ML SYRINGE SQ ONE
[2022-01-01 11:11] VITALS: BP 143/75; PULSE 83; RESP 15; TEMP 97.9
== END ==
LOC: PROCWHC3 11:06
PROVIDERS: ATTEND Family Medicine
DX: M81.0 Age-related osteoporosis without current pathological fracture (principal); Z88.2 Allergy status to sulfonamides
CPT/HCPCS: 96372; J0897

== ENCOUNTER → 2022-02-16 | Outpatient (CLI) | payer MEDICARE, OTHER ==
--- NOTE | 2022-02-20 10:31 | MM ---
Reason for Exam: Hx of breast cancer, conservation therapy. Last mammogram was performed 1 year(s) and 3 month(s) ago. Patient History: Menarche at age 15. First Full-Term at age 24. Postmenopausal. Breast cancer, left, age 76. Estrogen for 26 years until age 79. Progesterone for 26 years until age 79. Cyst Aspiration on the Right side. Cyst Aspiration on the Left side. Excisional Biopsy on the Right side. Excisional Biopsy on the Left side. Excisional Biopsy on the Left side. 11/15/2019, Benign Core Biopsy on the left side. 12/29/2016, Malignant Core Biopsy on the left side. 11/19/2014, Benign Cyst Aspiration on the left side. Prior Study Comparison: 11/21/2020 Bilateral Diagnostic Mammogram, [facility]. Tissue Density: The breast tissue is heterogeneously dense. This may lower the sensitivity of mammography. Findings: Analyzed By CAD. Benign-appearing vascular calcification bilaterally is redemonstrated. There are 2 mammotome biopsy clips in the left breast redemonstrated. No suspicious new mass or distortion in either breast. Overall Assessment: Benign, BI-RAD 2 Management: Screening Mammogram of both breasts in 1 year. Managed patient's chronic symptoms on clinical basis. Return to routine follow-up. Downtime . Electronically signed and approved by: Alo Lao M.D.
== END | disposition home or self-care (01) ==
LOC: RADMAMWWP 09:00
PROVIDERS: ATTEND Family Medicine
DX: R92.1 Mammographic calcification found on diagnostic imaging of breast (principal); Z78.0 Asymptomatic menopausal state
CPT/HCPCS: 77066; G0279; 77062

== ENCOUNTER → 2022-12-21 | Outpatient (CLI) | payer MEDICARE, OTHER ==
--- NOTE | 2022-12-21 19:57 | MR ---
EXAMINATION TYPE: MR brain wo con DATE OF EXAM: 12/21/2022 6:50 PM COMPARISON: 04/09/2021. CLINICAL INDICATION:Female, 82 years old with history of R26.89 ABNORMALITIES OF GAIT AND MOBILITY; P HH, Balance issues TECHNIQUE: Multi planar, multi sequence imaging was performed through the brain including: T1, T2, In version recovery, Diffusion weighted imaging, and gradient echo imaging. No gadolinium was given. FINDINGS: Mild cerebral atrophy changes with proportional dilation the ventricular system.. Mild progression o f the foci of high T2 signal intensity are seen within the periventricular white matter. Midline stru ctures show no abnormality. Diffusion-weighted imaging shows no evidence of restricted diffusion. The susceptibility weighted images do not reveal any evidence for micro-hemorrhage. The bone marrow signal is within normal limits. Paranasal sinuses and mastoid air cells: Trace high T2 signal within the right mastoid air cells. Visualized orbits: Bilateral aphakia IMPRESSION: 1. No evidence of intracranial mass or acute/subacute infarct. 2. Mild progression of Nonspecific white matter changes, likely secondary to small vessel ischemic di sease.
== END | disposition home or self-care (01) ==
LOC: RADMRIMAIN 18:16
PROVIDERS: ATTEND Family Medicine
DX: R26.89 Other abnormalities of gait and mobility (principal); R90.82 White matter disease, unspecified
CPT/HCPCS: 70551

== ENCOUNTER → 2023-02-18 | Outpatient (CLI) | payer MEDICARE, OTHER ==
--- NOTE | 2023-02-18 14:29 | MM ---
Reason for Exam: Follow-up at short interval from prior study. Last screening mammogram was performed 12 month(s) ago. Patient History: Menarche at age 15. First Full-Term at age 24. Postmenopausal. Breast cancer, left, age 76. Estrogen for 26 years until age 79. Progesterone for 26 years until age 79. Cyst Aspiration on the Right side. Cyst Aspiration on the Left side. Excisional Biopsy on the Right side. Excisional Biopsy on the Left side. Excisional Biopsy on the Left side. 11/15/2019, Benign Core Biopsy on the left side. 12/29/2016, Malignant Core Biopsy on the left side. 11/19/2014, Benign Cyst Aspiration on the left side. Tissue Density: The breast tissue is heterogeneously dense. This may lower the sensitivity of mammography. Findings: Analyzed By CAD. Benign bilateral vascular calcifications. Postsurgical changes left breast. 2 microclip left breast from prior biopsies. A couple areas of grouped calcifications posteriorly in the left breast remain unchanged back to at least 2019. No significant change from prior exams. Overall Assessment: Benign, BI-RAD 2 Management: Screening Mammogram of both breasts in 1 year. . Results were given to the patient verbally at the time of exam. Patient should continue monthly self-breast exams. A clinical breast exam by your physician is recommended on an annual basis. This exam should not preclude additional follow-up of suspicious palpable abnormalities. Note on Pattie scores and lifetime risk: 1. A Pattie score greater than 3% is considered moderate risk. If this is the case, consider specialist referral to assess eligibility for a risk reducing agent. 2. If overall lifetime risk for the development of breast cancer is 20% or higher, the patient may qualify for future screening with alternating mammogram and breast MRI. Electronically signed and approved by: Antolin Harris M.D. Radiologist
== END | disposition home or self-care (01) ==
LOC: RADMAMWWP 14:00
PROVIDERS: ATTEND Family Medicine
DX: R92.8 Other abnormal and inconclusive findings on diagnostic imaging of breast (principal); Z85.3 Personal history of malignant neoplasm of breast; Z78.0 Asymptomatic menopausal state
CPT/HCPCS: 77066; G0279; 77062

== ENCOUNTER → 2023-04-01 | Outpatient (CLI) | payer MEDICARE, OTHER ==
[2023-04-01 14:00] VITALS: BP 159/75; PULSE 84; RESP 16; TEMP 97.7
== END ==
LOC: PROCWHC3 12:59
PROVIDERS: ATTEND Family Medicine
DX: M81.0 Age-related osteoporosis without current pathological fracture (principal)
CPT/HCPCS: 96372; J0897

== ENCOUNTER → 2023-10-11 | Outpatient (CLI) | payer MEDICARE, OTHER ==
--- NOTE | 2023-10-11 13:26 | CA ---
Exercise Stress Test Report Name: Tamra Mendez Exam Date: 10/11/2023 11:02 Exam Location: [place] Stress Ht (in): 63 Wt (lb): 130 BSA: 1.61 Ordering Phys: Omari Castellanos MD Referring Phys: Vi Vincent PAC Technologist: Aline Bruno RDCS Age: 83 Gender: F : 1940 Procedure CPT: Indications: R06.09 FORMS OF DYSPNEA ICD-10 Codes: Patient History: Medications: SEE LIST Meds past 24 hrs: Pretest Chest Pain: STRESS TEST [place] Protocol Exercise Duration (min:sec): 03:[address] Depressions (mm): Angina Score: Marino Score: Resting HR (bpm): 100 Peak HR (bpm): 141 Resting BP (mmHg): 149 / 80 Peak BP (mmHg): 215 / 91 MPHR: 139 Target HR: 118 % MPHR: 101 METS: 4.7 Total Dose: Peak Dose: Atropine: Double Product: 65285 BP Response: Stress Termination: Reached target heart rate Stress Symptoms: NO SYMPTOMS Stress Summary: ECG ANALYSIS Resting ECG: Stress ECG: CONCLUSIONS Poor exercise tolerance Normal electrocardiogram in response to exercise Dr. Graeme Munoz MD (Electronically Signed) Final Date: 11 Oct 2023 13:25
== END | disposition home or self-care (01) ==
LOC: RADNMMAIN 09:31
PROVIDERS: ATTEND Family Medicine
DX: R06.09 Other forms of dyspnea (principal)
CPT/HCPCS: 93017

== ENCOUNTER → 2024-02-02 | Outpatient (CLI) | payer MEDICARE, OTHER ==
[2024-02-02 14:11] VITALS: BP 132/73; PULSE 86; RESP 16; TEMP 98.2
[2024-02-02] MEDS: DENOSUMAB 60 MG/ML 1 ML SYRINGE SQ NR (14:11)
== END ==
LOC: PROCWHC3 13:40
PROVIDERS: ATTEND Physician Assistant Medical
DX: M81.0 Age-related osteoporosis without current pathological fracture (principal)
CPT/HCPCS: 96372

== ENCOUNTER → 2024-02-24 | Outpatient (CLI) | payer MEDICARE, OTHER ==
--- NOTE | 2024-03-05 12:02 | MM ---
Reason for Exam: Screening (asymptomatic). Last screening mammogram was performed 12 month(s) ago. Patient History: Menarche at age 15. First Full-Term at age 24. Postmenopausal. Breast cancer, left, age 76. Estrogen for 26 years until age 79. Progesterone for 26 years until age 79. Cyst Aspiration on the Right side. Cyst Aspiration on the Left side. Excisional Biopsy on the Right side. Excisional Biopsy on the Left side. Excisional Biopsy on the Left side. 11/15/2019, Benign Core Biopsy on the left side. 12/29/2016, Malignant Core Biopsy on the left side. 11/19/2014, Benign Cyst Aspiration on the left side. Prior Study Comparison: 11/21/2020 Bilateral Diagnostic Mammogram, [facility]. 02/16/2022 Bilateral MG 3D diag mammo w/cad [facility], [facility]. 02/18/2023 Bilateral MG 3D diag mammo w/cad CRIST[facility], [facility]. Tissue Density: The breasts are heterogeneously dense, which may obscure small masses. Findings: Analyzed By CAD. The pattern is symmetrical. Benign Vascular calcifications present bilaterally. There are some grouped punctate calcifications which are near the tail of vascular calcifications and core marker. Positioning is somewhat different than prior examination. Additional workup is recommended. No suspicious groups of microcalcifications, spiculated or lobular masses, architectural distortion or other secondary signs of malignancy are mammographically apparent. Overall Assessment: Incomplete: need additional imaging evaluation, BI-RAD 0 Management: Diagnostic Mammogram of the left breast. A negative mammogram report should not preclude additional follow up of suspicious palpable abnormalities. Patient should continue monthly self breast exam. A clinical breast exam by your physician is recommended on an annual basis and results should be correlated with mammographic findings. Note on Pattie scores and lifetime risk: 1. A Pattie score greater than 3% is considered moderate risk. If this is the case, consider specialist referral to assess eligibility for a risk reducing agent. 2. If overall lifetime risk for the development of breast cancer is 20% or higher, the patient may qualify for future screening with alternating mammogram and breast MRI. [facility], , 03/05/2024 11:59 AM. Electronically signed and approved by: Salty Vitale D.O. Radiologis
== END | disposition home or self-care (01) ==
LOC: RADMAMWWP 12:52
PROVIDERS: ATTEND Family Medicine
CPT/HCPCS: 77063; 77067

== ENCOUNTER → 2024-03-16 | Outpatient (CLI) | payer MEDICARE, OTHER ==
--- NOTE | 2024-03-16 10:44 | MM ---
Reason for Exam: Additional evaluation requested from abnormal screening. Last screening mammogram was performed less than 1 month ago. Patient History: Menarche at age 15. First Full-Term at age 24. Postmenopausal. Breast cancer, left, age 76. Estrogen for 26 years until age 79. Progesterone for 26 years until age 79. Cyst Aspiration on the Right side. Cyst Aspiration on the Left side. Excisional Biopsy on the Right side. Excisional Biopsy on the Left side. Excisional Biopsy on the Left side. 11/15/2019, Benign Core Biopsy on the left side. 12/29/2016, Malignant Core Biopsy on the left side. 11/19/2014, Benign Cyst Aspiration on the left side. Prior Study Comparison: 02/16/2022 Bilateral MG 3D diag mammo w/cad CRIST[facility], [facility]. 02/18/2023 Bilateral MG 3D diag mammo w/cad CRIST[facility], [facility]. 02/24/2024 Bilateral MG 3D screening mammo w/cad, [facility]. Tissue Density: Left: The breasts are heterogeneously dense, which may obscure small masses. Findings: Analyzed By CAD. 3 groups of microcalcifications are noted are inner left breast requires tissue diagnosis via stereotactic core biopsy. Patient has a history of prior malignant core biopsy on the left. Overall Assessment: Suspicious, BI-RAD 4 Management: Stereotactic Core Biopsy of the left breast. . Results were given to the patient verbally at the time of exam. Patient should continue monthly self-breast exams. A clinical breast exam by your physician is recommended on an annual basis. This exam should not preclude additional follow-up of suspicious palpable abnormalities. Note on Pattie scores and lifetime risk: 1. A Pattie score greater than 3% is considered moderate risk. If this is the case, consider specialist referral to assess eligibility for a risk reducing agent. 2. If overall lifetime risk for the development of breast cancer is 20% or higher, the patient may qualify for future screening with alternating mammogram and breast MRI. [facility], , 03/16/2024 10:41 AM. Electronically signed and approved by: Leonel Moon M.D. Radiologis
== END | disposition home or self-care (01) ==
LOC: RADMAMWWP 10:07
PROVIDERS: ATTEND Family Medicine
CPT/HCPCS: 77061; 77065

== ENCOUNTER → 2024-03-30 | Day surgery (SDC) | payer MEDICARE, OTHER ==
[2024-03-30] MEDS: ALPRAZolam 0.25 MG TAB PO PRN (10:16)
[2024-03-30 10:26] VITALS: BP 133/74; PULSE 82; RESP 16; TEMP 98.1
--- NOTE | 2024-04-05 14:09 | MM ---
Prior Study Comparison: 02/18/2023 Bilateral MG 3D diag mammo w/cad CRISTY, [facility]. 02/24/2024 Bilateral MG 3D screening mammo w/cad, [facility]. 03/16/2024 Left MG 3D work up w/cad , [facility]. Pathology Description: Marker Left Behind. Specimen Radiograph. Calcium Found: Yes Needle Type: Eviva Cores: 7 Skin Nicks: 1 Gauge: 9 Pathology Description: Marker Left Behind. Specimen Radiograph. Calcium Found: Yes Approach: CC FA Needle Type: Eviva Cores: 7 Skin Nicks: 1 Gauge: 9 2 separate core biopsy of the left breast for microcalcifications The microcalcifications in question within the left breast group 1 most posterior group were targeted by the undersigned. Followed by tissue sampling of group labeled #2 superior middle position group. Procedure was performed by the undersigned. Informed consent was obtained and all of the patients questions were answered. The standard sterile technique was utilized and appropriate local anesthesia was obtained with 1% lidocaine. Mammotome probe was advanced and multiple core samples were obtained at each site and sent to pathology for interpretation. Microclip markers for deployed at the site of biopsy. Post procedural mammogram demonstrates appropriate deployment of radiopaque clip marker. The patient tolerated the procedure well and left the department in stable condition. Pathology results are pending. Please note there is a third cluster of microcalcifications which if today's biopsies are benign one can forego additional biopsy given similar morphology. Impression: Successful stereotactic core biopsy left breast at 2 sites. Pathology Results: Result: High risk, Atypical lobular hyperplasia. Pathology and radiology were reviewed. Findings are concordant. A. LEFT BREAST, SITE A, STEREOTACTIC CORE BIOPSY: Atypical lobular hyperplasia/lobular carcinoma in situ (ALH/LCIS) with microcalcification and fibrocystic change with columnar cell change. See note. B. LEFT BREAST, SITE B, STEREOTACTIC CORE BIOPSY: Atypical lobular hyperplasia/lobular carcinoma in situ (ALH/LCIS) and focal flat epithelial atypia (FEA). See note. Background fibrocystic change with microcalcification and columnar cell change present. Notes In order to confirm the diagnosis, immunostaining with E-Cadherin is performed with appropriate controls on tissue blocks A1 and B2. E-Cadherin staining on block blocks A1 and B2 show diminished to focally negative staining within areas of ALH/LCIS within each one of these blocks. Overall Assessment: High risk Management: Surgical Consultation of the left breast. Electronically signed and approved by: Leonel Moon M.D. Radiologis
== END ==
LOC: RADMAMWWP 10:02
PROVIDERS: ATTEND Surgery
DX: N60.12 Diffuse cystic mastopathy of left breast (principal); Z85.3 Personal history of malignant neoplasm of breast
CPT/HCPCS: 88305; 88342; 19081; 19082; A4648; J2003

== ENCOUNTER → 2024-10-06 | Outpatient (CLI) | payer MEDICARE, OTHER ==
--- NOTE | 2024-10-06 10:53 | MM ---
Reason for Exam: Follow-up at short interval from prior study. Last screening mammogram was performed 8 month(s) ago. Patient History: Menarche at age 15. First Full-Term at age 24. Postmenopausal. Breast cancer, left, age 76. Previous Atypical Lobular Hyperplasia at age 84. Estrogen for 26 years until age 79. Progesterone for 26 years until age 79. 03/30/2024, MG stereo VAD BX addl LT on the Left side. 03/30/2024, High risk MG stereo VAD BX LT on the left side. Cyst Aspiration on the Right side. Cyst Aspiration on the Left side. Excisional Biopsy on the Right side. Excisional Biopsy on the Left side. Excisional Biopsy on the Left side. 11/15/2019, Benign Core Biopsy on the left side. 12/29/2016, Malignant Core Biopsy on the left side. 11/19/2014, Benign Cyst Aspiration on the left side. Prior Study Comparison: 11/21/2020 Bilateral Diagnostic Mammogram, [facility]. 02/16/2022 Bilateral MG 3D diag mammo w/cad CRISTY, [facility]. 02/18/2023 Bilateral MG 3D diag mammo w/cad CRISTY, [facility]. 02/24/2024 Bilateral MG 3D screening mammo w/cad, [facility]. 03/16/2024 Left MG 3D work up w/cad LT, [facility]. Tissue Density: Left: The breasts are heterogeneously dense, which may obscure small masses. Findings: Analyzed By CAD. There are 3 biopsy clips now identified scattered throughout the left breast. Benign-appearing vascular calcifications in the left breast is again seen. Benign-appearing left axillary lymph node redemonstrated. No suspicious new mass or distortion in the left breast. Overall Assessment: Benign, BI-RAD 2 Management: Screening Mammogram of both breasts in 5 months. Return to routine follow-up. Results were given to the patient verbally at the time of exam. Patient should continue monthly self-breast exams. A clinical breast exam by your physician is recommended on an annual basis. This exam should not preclude additional follow-up of suspicious palpable abnormalities. Note on Pattie scores and lifetime risk: 1. A Pattie score greater than 3% is considered moderate risk. If this is the case, consider specialist referral to assess eligibility for a risk reducing agent. 2. If overall lifetime risk for the development of breast cancer is 20% or higher, the patient may qualify for future screening with alternating mammogram and breast MRI. [facility], , 10/06/2024 10:51 AM. Electronically signed and approved by: Alo Lao M.D.
== END | disposition home or self-care (01) ==
LOC: RADMAMWWP 10:25
PROVIDERS: ATTEND Surgery
DX: R92.8 Other abnormal and inconclusive findings on diagnostic imaging of breast (principal); R92.333 Mammographic heterogeneous density, bilateral breasts; Z78.0 Asymptomatic menopausal state; Z85.3 Personal history of malignant neoplasm of breast
CPT/HCPCS: 77065; G0279; 77061

== ENCOUNTER 2024-10-10 15:09 | Observation (INO) | payer MEDICARE, OTHER ==
[2024-10-10] MEDS: MECLIZINE 12.5 MG TAB PO STA ×2 (16:11→18:24)
[2024-10-10] MEDS: SODIUM CHLORIDE 0.9% 1,000 ML IV STA (16:11)
[2024-10-10 16:17] LABS: Basophils # (A) 0.02 10*3/uL (0.00-0.10); Basophils % (A) 0.3 %; Eosinophils # (A) 0.11 10*3/uL (0.04-0.35); Eosinophils % (A) 1.8 %; HCT 44.4 % (37.2-46.3); HGB 15.5 g/dL (12.0-15.0); Lymphocytes # (A) 1.43 10*3/uL (0.90-5.00); Lymphocytes % (A) 23.6 %; MCH 32.4 pg (27.0-32.0); MCHC 34.9 g/dL (32.0-37.0); MCV 92.9 fL (80.0-97.0); Mean Platelet Volume 9.4 fL (9.5-12.2); Monocytes % (A) 8.3 %; Neutrophils # (A) 3.99 10*3/uL (1.80-7.70); Neutrophils % (A) 65.8 %; Platelet Count 247 10*3/uL (140-440); RBC 4.78 10*6/uL (4.10-5.20); RDW 11.9 % (11.5-14.5); WBC 6.06 10*3/uL (4.50-10.00)
[2024-10-10 16:27] LABS: INR 0.9 (<1.2); Partial Thromboplastin Time 22.7 sec (22.0-30.0); Prothrombin Time 10.4 sec (10.0-12.5)
--- NOTE | 2024-10-10 16:34 | XR ---
EXAMINATION TYPE: XR chest 2V DATE OF EXAM: 10/10/2024 4:28 PM COMPARISON: None TECHNIQUE: XR chest 2V Frontal and lateral views of the chest. CLINICAL INDICATION:Female, 84 years old with history of dizziness; FINDINGS: Lungs/Pleura: There is no evidence of pleural effusion, focal consolidation, or pneumothorax. Pulmonary vascularity: Unremarkable. Heart/mediastinum: Cardiomediastinal silhouette is enlarged. Atherosclerotic calcifications are seen in the aorta. Musculoskeletal: No acute osseous pathology. Surgical anchors within the right humeral head. S-shaped scoliotic changes of the thoracolumbar spine with bilateral Robles rods. Other: Surgical clips in the left lower chest and upper abdomen. IMPRESSION: No acute cardiopulmonary disease/process. [facility], , 10/10/2024 4:31 PM
[2024-10-10 16:40] LABS: ALT 22 U/L (4-34); AST 37 U/L (14-36); African American GFR (CKD) >90 (>60 ml/min/1.73 sqM); Albumin 4.7 g/dL (3.5-5.0); Alkaline Phosphatase 75 U/L (38-126); Anion Gap 9 mmol/L; Blood Urea Nitrogen 14 mg/dL (7-17); Carbon Dioxide 30 mmol/L (22-30); Chloride 102 mmol/L (98-107); Glucose 119 mg/dL (74-99); Non-African American GFR(CKD) 80 (>60 ml/min/1.73 sqM); Potassium 4.2 mmol/L (3.5-5.1); Sodium 141 mmol/L (137-145); Total Bilirubin 0.6 mg/dL (0.2-1.3); Total Protein 7.9 g/dL (6.3-8.2)
--- NOTE | 2024-10-10 16:47 | ED ---
General Adult HPI - General Chief complaint: Dizziness Stated complaint: dizzy,headache Time Seen by Provider: 10/10/24 15:26 Source: patient Mode of arrival: wheelchair Limitations: no limitations - History of Present Illness Initial comments: Patient is a pleasant 84-year-old female no significant medical history presenting today for dizziness. Patient states she woke up on Wednesday morning at 3:30 AM with a left-sided headache and dizziness. States she walked to the bathroom and upon returning to her room felt like she had double vision. She went back to bed and upon waking in the morning had persistent dizziness. It has been on and off going since then. States headache has since resolved. It is like a normal headache she has had in the past. She describes the dizziness as an a feeling of unsteadiness. It is preventing her from being able to walk like she normally would. Aside from double vision, denies changes in vision, new focal numbness or weakness, neck pain, chest pain, shortness of breath, abdominal pain. Endorses nausea with onset of dizziness however that has since resolved. Denies vomiting, melena, hematochezia, diarrhea, black or bloody stools, dysuria. Denies fevers or chills. This has not happened to her before. She tried hima supplementation without relief. She has no history of prior strokes or ACS however patient's father had history of heart attack in his 80s, her mother had a stroke in her 70s and father her brother has had heart attack in his 70s. - Related Data Home Medications Medication Instructions Recorded Confirmed Fluticasone Propion/Salmeterol 1 puff INHALATION DIRECTED PRN 01/19/15 10/10/24 [Advair 250-50 Diskus] Levothyroxine Sodium [Synthroid] 75 mcg PO DAILY 01/19/15 10/10/24 Albuterol Inhaler [Ventolin Hfa 2 puff INHALATION RT-QID PRN 12/22/16 10/10/24 Inhaler] Multivit-Min/Iron/Folic/Lutein 1 tab PO DAILY 12/22/16 10/10/24 [Centrum Silver Women Tablet] Venlafaxine HCl [Effexor XR] 75 mg PO DAILY 06/12/19 10/10/24 Calcium Carbonate [Calcium] 1,200 mg PO HS 06/14/20 10/10/24 Montelukast [Singulair] 10 mg PO DAILY 02/02/24 10/10/24 Rosuvastatin Calcium [Crestor] 5 mg PO HS 03/17/24 10/10/24 Cetirizine HCl 10 mg PO DAILY 10/10/24 10/10/24 Co Q-10 100mg 100 mg PO HS 10/10/24 10/10/24 Enalapril [Vasotec] 20 mg PO HS 10/10/24 10/10/24 Flaxseed Oil 1000mg 1,000 mg PO DAILY 10/10/24 10/10/24 Fluticasone Nasal [place] [Flonase 2 spr EA NOSTRIL BID PRN 10/10/24 10/10/24 Nasal [place]] Magnesium Oxide [Mag-Ox] 400 mg PO HS 10/10/24 10/10/24 Prevagen 1 cap PO DAILY 10/10/24 10/10/24 amLODIPine [Norvasc] 5 mg PO DAILY 10/10/24 10/10/24 Allergies Allergy/AdvReac Type Severity Reaction Status Date / Time Sulfa (Sulfonamide AdvReac Nausea & Verified 10/10/24 19:42 Antibiotics) Vomiting Review of Systems ROS Statement: Those systems with pertinent positive or pertinent negative responses have been documented in the HPI. ROS Other: All systems not noted in ROS Statement are negative. Past Medical History Past Medical History: Asthma, Hyperlipidemia, Hypertension, Thyroid Disorder Additional Past Medical History / Comment(s): lifetime scoliosis History of Any Multi-Drug Resistant Organisms: None Reported Past Surgical History: Back Surgery, Orthopedic Surgery Additional Past Surgical History / Comment(s): rods implanted from cervical to lumbar spine, left calcaneous sx with screws/plate implanted , L foot x 2. Left breast lumpectomy for LCIS Past Anesthesia/Blood Transfusion Reactions: No Reported Reaction Additional Past Anesthesia/Blood Transfusion Reaction / Comment(s): had one blood transfusion in 1984 following spinal sx, no reactions noted. Past Psychological History: Depression Smoking Status: Never smoker Past Alcohol Use History: Daily Past Drug Use History: None Reported - Past Family History Brother(s) Family Medical History: Hypertension Mother Additional Family Medical History / Comment(s): Stroke Father Family Medical History: Myocardial Infarction ([place]) General Exam - General Exam Comments Initial Comments: PE: CONSTITUTIONAL: [no apparent distress, well appearing] SKIN: [warm, dry, no jaundice, hives or petechiae] EYES:[ pupils are equally round, extraocular movements intact, bilateral fatigable nystagmus, clear conjunctiva, non-icteric sclera] HENT: [normocephalic, atraumatic, moist mucus membranes, oropharynx clear without exudates] NECK: , [Full range of motion, normal appearance] PULMONARY: [clear to auscultation without wheezes, rhonchi, or rales, normal excursion, no accessory muscle use and no stridor] CARDIOVASCULAR:[ regular rate, rhythm, normal S1 and S2. No appreciated murmurs, rubs or gallops. Strong radial pulses with intact distal perfusion. No lower extremity edema] GASTROINTESTINAL: [soft, active bowel sounds throughout, non-tender, non- distended, no palpable masses, no rebound or guarding. No hepatosplenomegaly] GENITOURINARY: MUSCULOSKELETAL: [Extremities have no gross deformity, no edema, redness, or swelling. No calf swelling ] NEUROLOGIC: [_a/o x 3, GCS 15, normal mentation and speech. Moves all extremities x 4 without motor or sensory deficit cranial nerves: II (visual young without defects), III, IV and (extraocular movements are intact, pupils are equal with normal reaction to light), V (intact facial sensation and jaw opening), VII (no facial droop), IX and X (normal palate movement, midline uvula, normal voice), XI (symmetrical shoulder shrug and lateral head rotation against resistance), XII (midline tongue protrusion). Motor strength is 5/5 in all extremities. No abnormal movements. Normal muscle tone. Sensation to light touch is intact bilaterally. No cerebellar signs ([id number], [id number], and rapid alternating movements are normal)] Of note when patient was stood ambulate she had a broad-based stance and was unsteady upon trying to walk forward PSYCHIATRIC:[ _normal mood and affect, thought process is clear and linear] Limitations: no limitations Course Vital Signs 10/10/24 10/10/24 10/10/24 15:10 18:38 21:03 Temperature 98.4 F 98.3 F 98.6 F Pulse Rate 83 73 70 Respiratory 16 16 18 Rate Blood Pressure 155/81 167/83 143/74 O2 Sat by Pulse 96 99 98 Oximetry 10/10/24 10/11/24 10/11/24 23:33 02:18 05:00 Temperature 98.5 F Pulse Rate 66 66 88 Respiratory 18 18 18 Rate Blood Pressure 118/68 114/59 136/79 O2 Sat by Pulse 98 99 97 Oximetry 10/11/24 10/11/24 10/11/24 07:44 08:56 13:24 Temperature Pulse Rate 75 74 83 Respiratory 20 20 18 Rate Blood Pressure 128/74 137/83 O2 Sat by Pulse 97 97 98 Oximetry EKG Findings - EKG Comments: EKG Findings:: Sinus rhythm with occasional PVCs, intervals within acceptable limits, rate 74 bpm, normal axis, no significant ST elevations or depressions Medical Decision Making - Medical Decision Making Was pt. sent in by a medical professional or institution (, PA, POOL ATTENDANT, urgent care, hospital, or retirement...) When possible be specific @ -No Did you speak to anyone other than the patient for history (EMS, parent, family, police, friend...)? What history was obtained from this source @ -No Did you review nursing and triage notes (agree or disagree)? Why? @ -I reviewed and agree with nursing and triage notes Were old charts reviewed (outside hosp., previous admission, EMS record, old EKG, old radiological studies, urgent care reports/EKG's, retirement records)? Report findings @ -Medical records reviewed Differential Diagnosis (chest pain, altered mental status, abdominal pain women, abdominal pain men, vaginal bleeding, weakness, fever, dyspnea, syncope, headache, dizziness, GI bleed, back pain, seizure, CVA, palpatations, mental health, musculoskeletal)? @Differential Dizziness: Benign paroxysmal positional Vertigo, Meniere's disease, otitis media, acoustic neuroma, vertebrobasilar insufficiency, cerebellar stroke, encephalitis, hypovolemic, arrhythmia, coronary artery syndrome, anemia, this is not meant to be an all-inclusive list EKG interpreted by me (3pts min.). @ -As above X-rays interpreted by me (1pt min.). @I personally reviewed chest x-ray see no evidence of cardiomegaly or consolidations agree with radiologist interpretation CT interpreted by me (1pt min.). @I personally reviewed CT brain I see no evidence of hemorrhage or mass effect, I reviewed CTA head/neck see no evidence of large vessel occlusion or dissection I agree with radiologist interpretation U/S interpreted by me (1pt. min.). @ -None done What testing was considered but not performed or refused? (CT, X-rays, U/S, labs)? Why? @ -None What meds were considered but not given or refused? Why? @ -None Did you discuss the management of the patient with other professionals (professionals i.e. , PA, POOL ATTENDANT, lab, RT, psych nurse, adoption social worker, director information security, teacher, medical laboratory technical officer, case operator)? Give summary @ -No Was smoking cessation discussed for >3mins.? @ -No Was critical care preformed (if so, how long)? @ -No Were there social determinants of health that impacted care today? How? (Homelessness, low income, unemployed, alcoholism, drug addiction, trans portation, low edu. Level, literacy, decrease access to med. care, fdc, rehab)? @ -No Was there de-escalation of care discussed even if they declined (Discuss DNR or withdrawal of care, Hospice)? @ -No What co-morbidities impacted this encounter? (DM, HTN, Smoking, COPD, CAD, Cancer, CVA, ARF, Chemo, Hep., AIDS, mental health diagnosis, sleep apnea, morbid obesity)? @HTN, HLD Was patient admitted / discharged? Hospital course, mention meds given and route, prescriptions, significant lab abnormalities, going to OR and other pertinent info. @ -Admission -this is a pleasant 84-year-old female presenting today for dizziness with resultant unsteady gait. Exam significant for bilateral fatigabl e nystagmus. Patient was stood and observed, she was unsteady upon standing with a broad-based gait attempted to take 1 step forward and nearly fell so she was returned to her bed. Plan for CT brain, CTA comprehensive labs, meclizine and IV fluids patient agreeable with plan of care. CT brain did show small vessel ischemic changes though no acute changes. CTA negative. On reassessment patient does endorse slight symptom improvement though does remain symptomatic. Given bilateral nystagmus on exam, persistent symptoms and broad-based gait patient will be admitted for MRI brain and neurology evaluation to further rule out central process/cause of dizziness. Patient is agreeable to plan of care. Case discussed with Kasie Parisi, who kindly excepted patient for admission Undiagnosed new problem with uncertain prognosis? @ -No Drug Therapy requiring intensive monitoring for toxicity (Heparin, Nitro, Insulin, Cardizem)? @ -No Were any procedures done? @ -No Diagnosis/symptom? @Dizziness Acute, or Chronic, or Acute on Chronic? @Acute Uncomplicated (without systemic symptoms) or Complicated (systemic symptoms)? @Complicated Side effects of treatment? @ -No Exacerbation, Progression, or Severe Exacerbation? @ -No Poses a threat to life or bodily function? How? (Chest pain, USA, PA, pneumonia, PE, COPD, DKA, ARF, appy, cholecystitis, CVA, Diverticulitis, Homicidal, Suicidal, threat to staff... and all critical care pts) @ -Potentially secondary to central process - Lab Data Result diagrams: 10/10/24 16:07 10/10/24 16:07 Lab Results 10/10/24 10/10/24 10/10/24 Range/Units 16:07 16:07 16:07 WBC 6.06 (4.50-10.00) 10*3/uL RBC 4.78 (4.10-5.20) 10*6/uL Hgb 15.5 H (12.0-15.0) g/dL Hct 44.4 (37.2-46.3) % MCV 92.9 (80.0-97.0) fL MCH 32.4 H (27.0-32.0) pg MCHC 34.9 (32.0-37.0) g/dL Plt Count 247 (140-440) 10*3/uL MPV 9.4 L (9.5-12.2) fL Immature Gran % (Auto) 0.2 % Neutrophils % 65.8 % Lymphocytes % 23.6 % Monocytes % 8.3 % Eosinophils % 1.8 % Basophils % 0.3 % Immature Gran # 0.01 (0.00-0.04) 10*3/uL Neutrophils # 3.99 (1.80-7.70) 10*3/uL Lymphocytes # 1.43 (0.90-5.00) 10*3/uL Monocytes # 0.50 (0.20-1.00) 10*3/uL Eosinophils # 0.11 (0.04-0.35) 10*3/uL Basophils # 0.02 (0.00-0.10) 10*3/uL PT 10.4 (10.0-12.5) sec INR 0.9 (<1.2) APTT 22.7 (22.0-30.0) sec Sodium 141 (137-145) mmol/L Potassium 4.2 (3.5-5.1) mmol/L Chloride 102 (98-107) mmol/L Carbon Dioxide 30 (22-30) mmol/L Anion Gap 9 mmol/L BUN 14 (7-17) mg/dL Creatinine 0.71 (0.52-1.04) mg/dL Est GFR (CKD-EPI)AfAm >90 (>60 ml/min/1.73 sqM) Est GFR (CKD-EPI)NonAf 80 (>60 ml/min/1.73 sqM) Glucose 119 H (74-99) mg/dL Estimated Ave Glu mg/dL mg/dL Hemoglobin A1c (<=6.0) % Calcium 10.0 (8.4-10.2) mg/dL Total Bilirubin 0.6 (0.2-1.3) mg/dL AST 37 H (14-36) U/L ALT 22 (4-34) U/L Alkaline Phosphatase 75 (38-126) U/L Troponin I (0.000-0.034) ng/mL Total Protein 7.9 (6.3-8.2) g/dL Albumin 4.7 (3.5-5.0) g/dL Triglycerides (0.00-149.00) mg/dL Cholesterol (0.00-200.00) mg/dL LDL Cholesterol, Calc (0.0-131.0) mg/dL VLDL Cholesterol, Calc (5.00-40.00) mg/dL HDL Cholesterol (40.00-60.00) mg/dL Cholesterol/HDL Ratio Ratio Vitamin B12 (200.0-944.0) pg/mL TSH (0.350-5.500) UIU/ML 10/10/24 10/10/24 10/10/24 Range/Units 16:07 16:07 16:07 WBC (4.50-10.00) 10*3/uL RBC (4.10-5.20) 10*6/uL Hgb (12.0-15.0) g/dL Hct (37.2-46.3) % MCV (80.0-97.0) fL MCH (27.0-32.0) pg MCHC (32.0-37.0) g/dL Plt Count (140-440) 10*3/uL MPV (9.5-12.2) fL Immature Gran % (Auto) % Neutrophils % % Lymphocytes % % Monocytes % % Eosinophils % % Basophils % % Immature Gran # (0.00-0.04) 10*3/uL Neutrophils # (1.80-7.70) 10*3/uL Lymphocytes # (0.90-5.00) 10*3/uL Monocytes # (0.20-1.00) 10*3/uL Eosinophils # (0.04-0.35) 10*3/uL Basophils # (0.00-0.10) 10*3/uL PT (10.0-12.5) sec INR (<1.2) APTT (22.0-30.0) sec Sodium (137-145) mmol/L Potassium (3.5-5.1) mmol/L Chloride (98-107) mmol/L Carbon Dioxide (22-30) mmol/L Anion Gap mmol/L BUN (7-17) mg/dL Creatinine (0.52-1.04) mg/dL Est GFR (CKD-EPI)AfAm (>60 ml/min/1.73 sqM) Est GFR (CKD-EPI)NonAf (>60 ml/min/1.73 sqM) Glucose (74-99) mg/dL Estimated Ave Glu mg/dL 105 mg/dL Hemoglobin A1c 5.3 (<=6.0) % Calcium (8.4-10.2) mg/dL Total Bilirubin (0.2-1.3) mg/dL AST (14-36) U/L ALT (4-34) U/L Alkaline Phosphatase (38-126) U/L Troponin I <0.012 (0.000-0.034) ng/mL Total Protein (6.3-8.2) g/dL Albumin (3.5-5.0) g/dL Triglycerides 91.30 (0.00-149.00) mg/dL Cholesterol 156.00 (0.00-200.00) mg/dL LDL Cholesterol, Calc 67.2 (0.0-131.0) mg/dL VLDL Cholesterol, Calc 18.26 (5.00-40.00) mg/dL HDL Cholesterol 70.50 H (40.00-60.00) mg/dL Cholesterol/HDL Ratio 2.21 Ratio Vitamin B12 803.0 (200.0-944.0) pg/mL TSH 0.799 (0.350-5.500) UIU/ML Disposition Clinical Impression: Dizziness Disposition: ADMITTED IP TO THIS HOSP Condition: Stable
--- NOTE | 2024-10-10 18:25 | CT ---
EXAMINATION TYPE: CT brain wo con DATE OF EXAM: 10/10/2024 6:19 PM COMPARISON: None. CLINICAL INDICATION: Female, 84 years old with history of dizziness, dizziness TECHNIQUE: CT of the brain is performed utilizing 3 mm thick sections through the posterior fossa and 3 mm thick sections through the remaining calvarium. Study is performed within 24 hours of arrival to the hospital. Contrast used: mL of , (none if empty) CT DLP: 1038 mGycm, Automated exposure control for dose reduction was used. FINDINGS: No abnormal hyperdensity is present to suggest an acute intracranial hemorrhage. No mass lesion is evident. No acute infarcts are evident. Patchy periventricular white matter hypodensity is present likely on b asis of chronic white matter ischemic change. Ventricles and sulci are normal for the patient age. Paranasal sinuses and mastoid air cells within the [id number] are clear. IMPRESSION: 1. No acute intracranial process. Follow up MRI can be performed as clinically indicated. 2. Patchy periventricular white matter ischemic type changes with atrophy [facility], Workstation: [facility], 10/10/2024 6:23 PM
--- NOTE | 2024-10-10 18:37 | CT ---
EXAMINATION TYPE: CT angio head neck DATE OF EXAM: 10/10/2024 6:20 PM COMPARISON: None. CLINICAL INDICATION: Female, 84 years old with history of dizziness, unsteadiness, dizziness TECHNIQUE: CTA scan is performed with axial images are obtained, coronal and sagittal reformatted neelima ges are reviewed. MIP images created on a separate workstation and submitted for review. 3-D reconstr ucted images are created on an independent workstation and reviewed. Source images are reviewed. JIMMIE CET criteria was used in interpretation of this exam? Contrast used:65 mL of Isovue 370 with IV Contrast, (none if empty) Oral contrast used: (none if empty) CT DLP: 364.8 mGycm, Automated exposure control for dose reduction was used. FINDINGS: Carotid/Vascular Structures: There is a 3 vessel arch. Common carotid arteries bifurcate into internal and external carotid arteries without significant kevin w limiting stenosis. Tortuosity just below the left skull base is present within the left internal ca rotid artery Vertebral arteries are codominant. Internal carotid arteries and vertebral arteries are patent to the skull base. Cervical of [place]: Vertebral basilar system appears normal. Posterior cerebral vasculature is unrema rkable. Internal carotid arteries bifurcate normally into A1 and M1 segments. A2 segments are normal. The anterior communicating artery is patent. The right posterior communicating artery is absent. The left posterior communicating artery is absent. Other: IMPRESSION: 1. No flow-limiting stenosis bilateral carotid bifurcations. 2. Normal [place] of [place] [facility], Workstation: [facility], 10/10/2024 6:35 PM
[2024-10-10] MEDS ORDERED: NALOXONE 0.4 MG/ML 1 ML VIAL IV PRN (19:39)
[2024-10-10] MEDS ORDERED: ACETAMINOPHEN TAB 325 MG TAB PO PRN (19:39)
[2024-10-10] MEDS ORDERED: ONDANSETRON 4 MG/2 ML VIAL IVP PRN (19:39)
[2024-10-10] MEDS ORDERED: ALBUTEROL NEBULIZED 2.5 MG/3 ML INHALATION PRN (19:49)
[2024-10-10] MEDS ORDERED: SYMBICORT 80-4.5 MCG INHALER INHALATION PRN (19:49)
[2024-10-10] MEDS ORDERED: FLUTICASONE NASAL 50MCG/SPRAY 16GM BTL EA NOSTRIL PRN (19:49)
[2024-10-10] MEDS ORDERED: MECLIZINE 25 MG TAB PO PRN (20:04)
[2024-10-10] MEDS: SODIUM CHLORIDE 0.9% 1,000 ML IV SCH (20:07)
[2024-10-10] MEDS: MAGNESIUM OXIDE 400 MG TAB PO SCH (20:47)
[2024-10-10] MEDS: CALCIUM CARBONATE 500 MG CHEWABLE PO SCH (20:47)
[2024-10-10] MEDS: lisinopriL 20 MG TAB PO SCH (20:48)
[2024-10-10] MEDS: FAMOTIDINE 20 MG TAB PO SCH (20:48)
[2024-10-10] MEDS: ATORVASTATIN 10 MG TAB PO SCH (20:48)
--- NOTE | 2024-10-10 21:15 | P.HPIM ---
History of Present Illness H&P Date: 10/10/24 History of present illness; Patient is an 84-year-old female with hypothyroidism, asthma, hyperlipidemia, hypertension who presents with dizziness. Patient states she woke up on Wednesday morning at 3:30 AM with a headache and dizziness. She states that dizziness was worse when getting up and continue to persist. Dizziness is characterized by unbalanced feeling, denies vertigo. Denies any falls at this time. States headache has since resolved. Also, she states she has double vision without any other loss of vision. She attest to generally low oral intake which is normal for her. She denies new focal numbness or weakness, neck pain, chest pain, shortness of breath, abdominal pain. Spoke with the ER physician, patient admission was accepted by internal medicine service for treatment. REVIEW OF SYSTEMS: Pertinent positives and negatives noted in HPI. PHYSICAL EXAMINATION: Vitals reviewed GENERAL: Resting comfortably in bed. EYES: PERRL, no scleral injection or icterus. No vision loss HENT: Normocephalic, atraumatic, hearing grossly intact, moist mucous membranes NECK: No tracheal deviation, full range of motion. CARDIOVASCULAR: S1 and S2 present. No murmurs, rubs, or gallops. PULMONARY: Chest is clear to auscultation, no wheezing, rhonchi, or crackles. ABDOMEN: Soft, nontender, nondistended. No palpable organomegaly. MUSCULOSKELETAL: No apparent joint swelling and deformities. EXTREMITIES: No apparent cyanosis, clubbing. No pedal edema. NEUROLOGICAL: Alert and oriented. 5/5 strength in upper extremities. CN II through XII exam unremarkable. No dysmetria, dysdiadochokinesia, nystagmus noted. Dawn-Hallpike maneuver more significant dizziness with right side. SKIN: No apparent rashes. ER FINDINGS: Labs significant for hemoglobin 15.5, glucose 119, AST 37, troponin <0.012. EKG independently interpreted showed sinus rhythm with occasional preventricular premature complexes, heart rate of 74, QTc 429, no ST segment elevation or depression seen, no T-wave inversions seen. Chest x-ray done independently interpreted showed no acute cardiopulmonary pro cess. Bilateral Robles rods with surgical anchors in the humeral head, sclerotic changes. CT head independently interpreted showed no acute intracranial process. Patchy periventricular white matter ischemic type changes with atrophy. CTA head and neck done independently interpreted showed no significant stenosis, aneurysm or thrombus in the intracranial circulation. Assessment and Plan: In summary, patient is an 84-year-old female with hypothyroidism, asthma, hyperlipidemia, hypertension who presents with dizziness. # Acute onset dizziness, rule out acute ischemic stroke versus BPPV versus malnutrition due to poor intake Head CT and CT angiogram head and neck noted as above, unremarkable - EKGno ST elevations or T wave abnormalities or arrhythmia noted Continuous cardiac monitoring HbA1c, Lipid panel, TSH, Vit. B12 ordered - Begin aspirin 81 mg daily, continue home statin - Begin meclizine 25 mg 4 times daily as needed for dizziness - Echocardiogram with bubble study ordered - Fall precautions MRI brain with and without contrast ordered - Consult PT and OT for evaluation Neurology consulted Chronic Medical Conditions #Hypertension #Asthma #Hyperlipidemia #Hypothyroidism #Allergic rhinitis #Anxiety/depression Resume home medications DVT ppx: Subq Lovenox 40 meq daily Code status: Full code F: P.o. E: Replete as needed N: Heart healthy diet A: Ambulatory Anticipated discharge place: Pending clinical course Anticipated discharge time: Pending clinical course Dictation was produced using [employer] dictation software. Please excuse any grammatical, word or spelling errors. I have seen and evaluated the patient today. Discussed with the resident and agree with the residents finding and plan as documented in the resident's note. Changes highlighted in blue font. Past Medical History Past Medical History: Asthma, Hyperlipidemia, Hypertension, Thyroid Disorder Additional Past Medical History / Comment(s): lifetime scoliosis History of Any Multi-Drug Resistant Organisms: None Reported Past Surgical History: Back Surgery, Orthopedic Surgery Additional Past Surgical History / Comment(s): rods implanted from cervical to lumbar spine, left calcaneous sx with screws/plate implanted , L foot x 2. Left breast lumpectomy for LCIS Past Anesthesia/Blood Transfusion Reactions: No Reported Reaction Additional Past Anesthesia/Blood Transfusion Reaction / Comment(s): had one blood transfusion in 1984 following spinal sx, no reactions noted. Past Psychological History: Depression Smoking Status: Never smoker Past Alcohol Use History: Daily Past Drug Use History: None Reported - Past Family History Brother(s) Family Medical History: Hypertension Mother Additional Family Medical History / Comment(s): Stroke Father Family Medical History: Myocardial Infarction ([place]) Medications and Allergies Home Medications Medication Instructions Recorded Confirmed Type Fluticasone Propion/Salmeterol 1 puff INHALATION DIRECTED PRN 01/19/15 10/10/24 History [Advair 250-50 Diskus] Levothyroxine Sodium [Synthroid] 75 mcg PO DAILY 01/19/15 10/10/24 History Albuterol Inhaler [Ventolin Hfa 2 puff INHALATION RT-QID PRN 12/22/16 10/10/24 History Inhaler] Multivit-Min/Iron/Folic/Lutein 1 tab PO DAILY 12/22/16 10/10/24 History [Centrum Silver Women Tablet] Venlafaxine HCl [Effexor XR] 75 mg PO DAILY 06/12/19 10/10/24 History Calcium Carbonate [Calcium] 1,200 mg PO HS 06/14/20 10/10/24 History Montelukast [Singulair] 10 mg PO DAILY 02/02/24 10/10/24 History Rosuvastatin Calcium [Crestor] 5 mg PO HS 03/17/24 10/10/24 History Cetirizine HCl 10 mg PO DAILY 10/10/24 10/10/24 History Co Q-10 100mg 100 mg PO HS 10/10/24 10/10/24 History Enalapril [Vasotec] 20 mg PO HS 10/10/24 10/10/24 History Flaxseed Oil 1000mg 1,000 mg PO DAILY 10/10/24 10/10/24 History Fluticasone Nasal [place] [Flonase 2 spr EA NOSTRIL BID PRN 10/10/24 10/10/24 History Nasal [place]] Magnesium Oxide [Mag-Ox] 400 mg PO HS 10/10/24 10/10/24 History Prevagen 1 cap PO DAILY 10/10/24 10/10/24 History amLODIPine [Norvasc] 5 mg PO DAILY 10/10/24 10/10/24 History Allergies Allergy/AdvReac Type Severity Reaction Status Date / Time Sulfa (Sulfonamide AdvReac Nausea & Verified 10/10/24 19:42 Antibiotics) Vomiting Physical Exam Vitals: Vital Signs Temp Pulse Resp BP Pulse Ox 10/10/24 18:38 98.3 F 73 16 167/83 99 10/10/24 15:10 98.4 F 83 16 155/81 96 Intake and Output 10/10/24 10/10/24 10/10/24 06:59 14:59 22:59 Other: Weight 61.235 kg Results CBC & Chem 7: 10/10/24 16:07 10/10/24 16:07 Labs: Abnormal Lab Results - Last 24 Hours (Table) 10/10/24 10/10/24 Range/Units 16:07 16:07 Hgb 15.5 H (12.0-15.0) g/dL MCH 32.4 H (27.0-32.0) pg MPV 9.4 L (9.5-12.2) fL Glucose 119 H (74-99) mg/dL AST 37 H (14-36) U/L
[2024-10-11] MEDS: LEVOTHYROXINE 75 MCG TAB PO SCH (07:01)
[2024-10-11 08:50] LABS: Chol/HDL Ratio 2.21 Ratio; LDL Cholesterol,Calculated 67.2 mg/dL (0.0-131.0); VLDL Calculation 18.26 mg/dL (5.00-40.00)
[2024-10-11] MEDS: MONTELUKAST 10 MG TAB PO SCH (08:50)
[2024-10-11] MEDS: ASPIRIN 81 MG PO SCH (08:50)
[2024-10-11] MEDS: amLODIPine 5 MG TAB PO SCH (08:50)
[2024-10-11] MEDS: LORATADINE 10 MG TAB PO SCH (08:51)
[2024-10-11] MEDS: VENLAFAXINE HCL ER 75 MG CAP PO SCH (08:51)
[2024-10-11] MEDS: ENOXAPARIN 40 MG/0.4 ML SYRINGE SQ SCH (08:51)
--- NOTE | 2024-10-11 16:25 | P.PN ---
Subjective Progress Note Date: 10/11/24 Hospital course: Patient is a pleasant 84-year-old female with a past medical history of hypertension, hyperlipidemia thyroidism, asthma, and anxiety with depression. She presented to the emergency department with a chief complaint of headache and dizziness. Upon arrival to our facility, patient underwent evaluation in the emergency department. Vital signs upon arrival show blood pressure 155/81, heart rate 83, respiratory rate 16, temp 98.4 F, 6% on room air. EKG completed showing normal sinus rhythm at 74 bpm with occassional PACs. CT brain without contrast completed negative for acute intercranial process revealing patchy periventricular white matter ischemic changes with atrophy. Chest x-ray negative for acute cardiopulmonary process. CTA head and neck negative for acute process showing no flow-limiting stenosis of bilateral carotid bifurcations and normal [place]. Labs completed and reviewed. CBC showing hemoglobin 15.5. Coagulation profile normal findings. Blood glucose 119. Liver profile showing elevated AST of 37. Troponin was negative at less than 0.012. Patient admitted under our services with consultation to neurology. Hemoglobin A1c resulting at 5.3%. Lipid profile unremarkable. TSH normal findings at 0.799 and vitamin B12 103. Physical exam: Patient seen and fully evaluated at bedside this morning. She continues to report persistent dizziness and headache states generalized and unable to localize pain. She also reports improvement of her previous reported double vision stating her vision is back to baseline. She continues to deny having any chest pain, palpitations, shortness of breath, or experiencing any focal numbness/tingling/weakness in her extremities. Patient awaiting to undergo MRI and awaiting completion of echocardiogram. Vital signs reviewed and stable. General: Nontoxic, no distress and appears stated age. Derm: Skin warm and dry, normal coloration for ethnicity. Head: Atraumatic, normocephalic and symmetric. Eyes: EOM's intact, no lid lag, and anicteric sclera Mouth: no lip lesions, mucus membranes moist Cardiovascular: regular rate and rhythm with normal S1S2, no murmur, positive po sterior tibial pulses bilaterally, and cap refill < 2 seconds. Lungs: Respirations even, regular, and unlabored on room air. Lungs CTA bilaterally, no rhonchi, no rales, no wheezing, and no accessory muscle usage. Abdominal: soft, nontender to palpation, no guarding, no appreciable organomegaly Ext: ROM intact. No gross muscle atrophy, no edema, no contractures Neuro: Speech clear, face symmetrical and CN II-XII grossly intact with no noted focal neuro deficits Psych: Alert and oriented to person, place, time, and situation. Appropriate and pleasant affect. Assessment and Plan of Care: Intractable dizziness and headache, rule out CVA -Neurology following, discussed plan of care with Dr. Ferreira. Patient awaiting to undergo MRI brain and echocardiogram. -MRI brain with and without contrast -Echocardiogram -Hemoglobin A1c resulting at 5.3%. Lipid profile unremarkable. TSH normal fi ndings at 0.799 and vitamin B12 103. - Continue neuro checks every 4 hours and as needed -Daily aspirin 81 mg and atorvastatin 10 mg nightly. -PT/OT consult -Fall precautions and provide pt with assistance as needed. - Orthostatic vitals - Meclizine 25 mg 4 times daily as needed for vertigo. Hypertension -Monitor vital signs and continue daily medication regimen with amlodipine 5 mg daily and lisinopril 40 mg nightly. Hyperlipidemia -Lipid profile unremarkable. Patient to continue home medication regimen with atorvastatin 10 mg nightly. Hypothyroidism -TSH normal findings at 0.799. Patient to continue levothyroxine 75 mcg daily. Mild persistent asthma - Continue Ventolin inhaler 4 times daily as needed for wheezing/shortness of breath, Singulair 10 mg daily and Symbicort 80-4.5 mcg inhaler 2 puffs twice daily. Anxiety with depression -Continue Effexor 75 mg daily. Data and imaging reviewed: -Labs reviewed. Hemoglobin A1c resulting at 5.3%. Lipid profile unremarkable. TSH normal findings at 0.799 and vitamin B12 103. - Vital signs reviewed. Blood pressure 128/74, heart rate 75, respiratory rate 20, and SpO2 of 97% on room air CODE STATUS: Full code DVT prophylaxis: Lovenox Discussed with: Patient, RN, and neurologist Anticipated discharge date: Pending completion of MRI and echocardiogram Anticipated discharge place: Home Patient was seen independently by Nurse Pracitioner. This document was prepared using [employer] dictation software. Please allow for errors in shank sander, while rare they do occur. Luis Enrique Sims NP rendered care for this patient independently, reviewed the findings and plan as documented in the note above and agree with plan. I did not physically speak with or examine the patient on this date. Objective - Vital Signs Vital signs: Vital Signs Temp 98.5 F 10/10/24 23:33 Pulse 75 10/11/24 07:44 Resp 20 10/11/24 07:44 BP 128/74 10/11/24 07:44 Pulse Ox 97 10/11/24 07:44 FiO2 Intake & Output 10/10/24 10/11/24 10/11/24 18:59 06:59 18:59 Weight 61.235 kg - Labs CBC & Chem 7: 10/10/24 16:07 10/10/24 16:07 Labs: Abnormal Lab Results - Last 24 Hours (Table) 10/10/24 10/10/24 Range/Units 16:07 16:07 Hgb 15.5 H (12.0-15.0) g/dL MCH 32.4 H (27.0-32.0) pg MPV 9.4 L (9.5-12.2) fL Glucose 119 H (74-99) mg/dL AST 37 H (14-36) U/L
--- NOTE | 2024-10-11 16:38 | P.CNNES ---
History of Present Illness Consult date: 10/11/24 Requesting physician: Haritha Lemons Reason for Consult: dizziness History of Present Illness: This is an 84-year-old woman who presents the emergency department because of dizziness. Patient stated that happened yesterday and she noticed that about 3 AM when she went to the bathroom and came back and she felt the room was spinning but felt like she had some nausea and dry heaves. Her dizziness improved with resting. Denies any ringing in the ears or hearing loss any focal deficit. Denies any speech difficulty. She feels she is doing better today compared to yesterday. Denies any history of stroke. She does have underlying history of hypertension. Some of the workup during this hospital visit consisted of: I reviewed lab workup. CT of the head is reported as no acute intracranial process. Patchy periv entricular white matter ischemic type changes with atrophy. I personally reviewed the CT and agree there is no acute or subacute stroke. CT angiography of the head and neck is reported as no flow-limiting stenosis bilateral carotid bifurcation. Normal [place]. Review of Systems As per HPI. Past Medical History Past Medical History: Asthma, Hyperlipidemia, Hypertension, Thyroid Disorder Additional Past Medical History / Comment(s): lifetime scoliosis History of Any Multi-Drug Resistant Organisms: None Reported Past Surgical History: Back Surgery, Orthopedic Surgery Additional Past Surgical History / Comment(s): rods implanted from cervical to lumbar spine, left calcaneous sx with screws/plate implanted , L foot x 2. Left breast lumpectomy for LCIS Past Anesthesia/Blood Transfusion Reactions: No Reported Reaction Additional Past Anesthesia/Blood Transfusion Reaction / Comment(s): had one blood transfusion in 1984 following spinal sx, no reactions noted. Past Psychological History: Depression Smoking Status: Never smoker Past Alcohol Use History: Daily Past Drug Use History: None Reported - Past Family History Brother(s) Family Medical History: Hypertension Mother Additional Family Medical History / Comment(s): Stroke Father Family Medical History: Myocardial Infarction ([place]) Medications and Allergies Home Medications Medication Instructions Recorded Confirmed Type Fluticasone Propion/Salmeterol 1 puff INHALATION RT-BID PRN 01/19/15 10/11/24 History [Advair 250-50 Diskus] Levothyroxine Sodium [Synthroid] 75 mcg PO DAILY 01/19/15 10/10/24 History Albuterol Inhaler [Ventolin Hfa 2 puff INHALATION RT-QID PRN 12/22/16 10/10/24 History Inhaler] Multivit-Min/Iron/Folic/Lutein 1 tab PO DAILY 12/22/16 10/10/24 History [Centrum Silver Women Tablet] Venlafaxine HCl [Effexor XR] 75 mg PO DAILY 06/12/19 10/10/24 History Calcium Carbonate [Calcium] 1,200 mg PO HS 06/14/20 10/10/24 History Montelukast [Singulair] 10 mg PO DAILY 02/02/24 10/10/24 History Rosuvastatin Calcium [Crestor] 5 mg PO HS 03/17/24 10/10/24 History Cetirizine HCl 10 mg PO DAILY 10/10/24 10/10/24 History Co Q-10 100mg 100 mg PO HS 10/10/24 10/10/24 History Enalapril [Vasotec] 20 mg PO HS 10/10/24 10/10/24 History Flaxseed Oil 1000mg 1,000 mg PO DAILY 10/10/24 10/10/24 History Fluticasone Nasal [place] [Flonase 2 spr EA NOSTRIL BID PRN 10/10/24 10/10/24 History Nasal [place]] Magnesium Oxide [Mag-Ox] 400 mg PO HS 10/10/24 10/10/24 History Prevagen 1 cap PO DAILY 10/10/24 10/10/24 History amLODIPine [Norvasc] 5 mg PO DAILY 10/10/24 10/10/24 History Allergies Allergy/AdvReac Type Severity Reaction Status Date / Time Sulfa (Sulfonamide AdvReac Nausea & Verified 10/10/24 19:42 Antibiotics) Vomiting Physical Examination - Vital Signs Vital Signs: Vital Signs Temp Pulse Pulse Resp BP BP BP 10/11/24 15:38 91 143/83 10/11/24 15:37 86 130/77 10/11/24 15:32 98.2 F 73 20 10/11/24 13:24 83 18 137/83 10/11/24 08:56 74 20 10/11/24 07:44 75 20 128/74 10/11/24 05:00 88 18 136/79 10/11/24 02:18 66 18 114/59 10/10/24 23:33 98.5 F 66 18 118/68 10/10/24 21:03 98.6 F 70 18 143/74 10/10/24 18:38 98.3 F 73 16 167/83 BP Pulse Ox 10/11/24 15:38 10/11/24 15:37 10/11/24 15:32 129/72 98 10/11/24 13:24 98 10/11/24 08:56 97 10/11/24 07:44 97 10/11/24 05:00 97 10/11/24 02:18 99 10/10/24 23:33 98 10/10/24 21:03 98 10/10/24 18:38 99 GENERAL: The patient is lying in bed and is not in acute distress. NEUROLOGICAL: Higher mental function: The patient is awake, alert, oriented to self, place and time. Patient is following commands. No aphasia and no neglect. Cranial nerves: The pupils are round, equal and reactive to light and accommodation. Visual young are full to confrontation throughout. Extraocular movement is subtle horizontal nystagmus looking to far left. Facial sensation is normal to touch throughout. The facial strength is normal throughout. Hearing is normal bilaterally to hand rub. Tongue is midline and moved [id number] without any difficulty. No dysarthria is noted. Shoulder shrug is normal bilaterally. Motor: The strength is 5 over 5 throughout. Normal tone and bulk. Cerebellum: Normal finger to nose bilaterally. Sensation: Sensation is normal to touch throughout. Reflexes (right/left): 2+ throughout. Plantars are downgoing bilaterally. Results - Laboratory Findings CBC and BMP: 10/10/24 16:07 10/10/24 16:07 Abnormal Lab Findings: Abnormal Labs 10/10/24 10/10/24 10/10/24 16:07 16:07 16:07 Hgb 15.5 H MCH 32.4 H MPV 9.4 L Glucose 119 H AST 37 H HDL Cholesterol 70.50 H Assessment and Plan Assessment: This is an 84-year-old woman who presents the emergency department because of dizziness with nausea that started yesterday around 3 AM. Patient does not have any focal deficit. She feels dizziness is improving. Acute vertigo likely peripheral. Unlikely acute or subacute ischemia Hypertension Plan: MRI of the brain is ordered by the ED team I changed the meclizine from 25 mg 4 times daily as needed to 25 mg 3 times daily scheduled for 7 days and after that as needed PT and OT are consulted Primary team started the patient on aspirin 81 mg and Lipitor 10 mg nightly. Will defer the rest of the medical management to primary other specialist Plan discussed with the patient and her was at bedside Thank you for the consultation. Time with Patient: Greater than 30
[2024-10-11] MEDS: MECLIZINE 25 MG TAB PO SCH (21:01)
--- NOTE | 2024-10-12 10:11 | MR ---
EXAMINATION TYPE: MR brain wo/w con DATE OF EXAM: 10/12/2024 COMPARISON: CT brain 2 days earlier. MRI brain December 21, 2022 HISTORY: Dizziness TECHNIQUE: Multiplanar, multisequence images of the brain and brainstem is performed without and with IV contras t, utilizing 6 mL intravenous Gadobutrol . FINDINGS: Diffusion weighted images demonstrate no evidence of a recent infarct or other diffusion ab normality. There is mild to moderate ventricular and sulcal prominence redemonstrated. There are mul tifocal and confluent areas of T2 hyperintensity greatest at the periventricular levels redemonstrate d Midline structures demonstrate normal morphology. The craniocervical junction appears within normal limits. Post contrast images demonstrate no abnormal enhancement. The dural venous sinuses appear pa tent. Bilateral aphakia is now present. No suspicious opacification of the mastoid air cells bilatera lly. IMPRESSION: 1. No MRI evidence for recent infarct. 2. There is now mild/moderate diffuse cerebral atrophy and moderate chronic small vessel ischemic yovana nge. No suspicious enhancement noted. [facility], , 10/12/2024 10:08 AM
--- NOTE | 2024-10-12 10:15 | CA ---
Transthoracic Echo Report Name: Tamra Mendez Age: 84 Gender: F : 1940 Exam Date: 10/11/2024 15:59 Exam Location: [facility] Ht (in): 63 Wt (lb): 135 Ordering Physician: Amado Drummond MD Attending/Referring Phys: [facility] Trisha Jones RDCS Procedure CPT: Indications: possible CVA Cardiac Hx: Technical Quality: Good Contrast 1: Agitated Saline Total Dose (mL): 10 Contrast 2: Total Dose (mL): MEASUREMENTS (Male / Female) Normal Values 2D ECHO LV Diastolic Diameter PLAX 4.4 cm 4.2 - 5.9 / 3.9 - 5.3 cm LV Systolic Diameter PLAX 3.0 cm IVS Diastolic Thickness 0.9 cm 0.6 - 1.0 / 0.6 - 0.9 cm LVPW Diastolic Thickness 1.2 cm 0.6 - 1.0 / 0.6 - 0.9 cm LV Relative Wall Thickness 0.5 LVOT Diameter 1.9 cm LV Diastolic Volume MOD BP 66.1 cm??? 67 - 155 / 56 - 104 cm??? LV Systolic Volume MOD BP 28.3 cm??? 22 - 58 / 19 - 49 cm??? LV Ejection Fraction MOD BP 57.1 % >= 55 % LV Cardiac Index MOD BP 1911.8 cm???/min???m??? LV Diastolic Volume MOD 4C 72.3 cm??? LV Systolic Volume MOD 4C 30.7 cm??? LV Ejection Fraction MOD 4C 57.5 % LV Cardiac Index MOD 4C 2105.8 cm???/min???m??? LV Diastolic Length 4C 6.8 cm LV Systolic Length 4C 5.8 cm LV Diastolic Volume MOD 2C 60.6 cm??? LV Systolic Volume MOD 2C 25.8 cm??? LV Ejection Fraction MOD 2C 57.5 % LV Cardiac Index MOD 2C 1762.3 cm???/min???m??? LV Diastolic Length 2C 6.7 cm LV Systolic Length 2C 5.9 cm LA Volume 58.7 cm??? 18 - 58 / 22 - 52 cm??? LA Volume Index 35.4 cm???/m??? 16 - 28 cm???/m??? Ascending Aorta Diameter 3.1 cm DOPPLER AV Peak Velocity 137.4 cm/s AV Peak Gradient 7.6 mmHg AV Mean Velocity 98.2 cm/s AV Mean Gradient 4.2 mmHg AV Velocity Time Integral 27.0 cm LVOT Peak Velocity 92.1 cm/s LVOT Peak Gradient 3.4 mmHg LVOT Velocity Time Integral 16.6 cm LVOT Stroke Volume 47.7 cm??? LVOT Stroke Volume Index 29.1 ml/m??? LVOT Cardiac Index 2413.7 cm???/min???m??? AV Area Cont Eq vti 1.8 cm??? AV Area Cont Eq pk 1.9 cm??? MV Area PHT 3.9 cm??? Mitral E Point Velocity 87.6 cm/s Mitral A Point Velocity 73.7 cm/s Mitral E to A Ratio 1.2 MV Deceleration Time 193.9 ms TR Peak Velocity 302.7 cm/s TR Peak Gradient 36.6 mmHg Right Atrial Pressure 5.0 mmHg Pulmonary Artery Systolic Pressu 41.6 mmHg Right Ventricular Systolic Press 41.6 mmHg PV Peak Velocity 93.9 cm/s PV Peak Gradient 3.5 mmHg FINDINGS Left Ventricle Left ventricular ejection fraction is estimated at 55 %. Mildly increased posterior wall thickness. Left ventricular cavity size normal. No obvious regional wall motion abnormalities. Right Ventricle Normal right ventricular size and function. Mild pulmonary hypertension. Right Atrium Normal right atrial size. Negative agitated saline bubble study for right to left shunt. Left Atrium Mildly increased left atrial volume. Mitral Valve Structurally normal mitral valve. Mitral annular calcification. No evidence for mitral valve prolapse. No mitral stenosis. Trace mitral regurgitation. Aortic Valve Trileaflet aortic valve. Aortic valve sclerosis. No aortic stenosis. Trace aortic regurgitation. Tricuspid Valve Structurally normal tricuspid valve. No tricuspid stenosis. Mild tricuspid regurgitation. Pulmonic Valve Structurally normal pulmonic valve. No pulmonic stenosis. Trace pulmonic regurgitation. Pericardium No pericardial effusion. Aorta Normal size aortic root and proximal ascending aorta. CONCLUSIONS Normal LV size and systolic function. No significant abnormality on the Doppler exam. Bubble study is negative for shunt. No pericardial effusion mildly elevated PA pressure Previewed by: Dr. Elizabeth Olivares MD (Electronically Signed) Final Date: 12 Oct 2024 10:14
--- NOTE | 2024-10-12 11:30 | P.DS ---
Providers Date of admission: 10/10/24 19:46 Expected date of discharge: 10/12/24 Attending physician: Kartik Briggs Consults: 10/10/24 19:39 Consult Physician Urgent Consulting Provider: Dequan Aiken Consult Reason/Comments: Dizziness Do you want consulting provider notified?: Yes, Notify in am Primary care physician: Omari Castellanos Hospital Course: Discharge Diagnosis: Intractable dizziness and headache, secondary to vertigo. Orthostatic vitals negative for orthostatic hypotension. Echocardiogram completed showing a preserved EF of 55% with no significant valvular or structural abnormality and negative bubble study. MRI brain negative showing no evidence for recent infarct and mild to moderate diffuse cerebral atrophy and moderate chronic small vessel ischemic changes with no suspicion enhancement noted. Patient cleared from neurology perspective and is medically optimized for discharge at this time. Patient will follow-up outpatient with PCP in 1 to 2 days. Patient discharged home with meclizine 25 mg 4 times daily as needed for vertigo. Instructed to change positions slowly from lying to sitting, sitting before standing, and standing before walking. Hypertension. Continue daily medication regimen with amlodipine 5 mg daily and lisinopril 40 mg nightly. Hyperlipidemia. Lipid profile unremarkable. Patient to continue home medication regimen with atorvastatin 10 mg nightly. Hypothyroidism. TSH normal findings at 0.799. Patient to continue levothyroxine 75 mcg daily. Mild persistent asthma. Continue Ventolin inhaler 4 times daily as needed for wheezing/shortness of breath, Singulair 10 mg daily and Symbicort 80-4.5 mcg inhaler 2 puffs twice daily. Anxiety with depression. Continue Effexor 75 mg daily. Hospital Course: Patient is a pleasant 84-year-old female with a past medical history of hypertension, hyperlipidemia thyroidism, asthma, and anxiety with depression. She presented to the emergency department with a chief complaint of headache and dizziness. Upon arrival to our facility, patient underwent evaluation in the emergency department. Vital signs upon arrival show blood pressure 155/81, heart rate 83, respiratory rate 16, temp 98.4 F, 6% on room air. EKG completed showing normal sinus rhythm at 74 bpm with occassional PACs. CT brain without contrast completed negative for acute intercranial process revealing patchy periventricular white matter ischemic changes with atrophy. Chest x-ray negative for acute cardiopulmonary process. CTA head and neck negative for acute process showing no flow-limiting stenosis of bilateral carotid bifurcations and normal resighini of [place]. Labs completed and reviewed. CBC showing hemoglobin 15.5. Coagulation profile normal findings. Blood glucose 119. Liver profile showing elevated AST of 37. Troponin was negative at less than 0.012. Patient admitted under our services with consultation to neurology. Hemoglobin A1c resulting at 5.3%. Lipid profile unremarkable. TSH normal findings at 0.799 and vitamin B12 103. Orthostatic vitals negative for orthostatic hypotension. Echocardiogram completed showing a preserved EF of 55% with no significant valvular or structural abnormality and negative bubble study. MRI brain negative showing no evidence for recent infarct and mild to moderate diffuse cerebral atrophy and moderate chronic small vessel ischemic changes with no suspicion enhancement noted. Patient cleared from neurology perspective and is medically optimized for discharge at this time. Patient will follow-up outpatient with PCP in 1 to 2 days. Patient discharged home with meclizine 25 mg 4 times daily as needed for vertigo. Instructed to change positions slowly from lying to sitting, sitting before standing, and standing before walking. Physical exam: Vital signs reviewed and stable. General: Nontoxic, no distress and appears stated age. Derm: Skin warm and dry, normal coloration for ethnicity. Head: Atraumatic, normocephalic and symmetric. Eyes: EOM's intact, no lid lag, and anicteric sclera Mouth: no lip lesions, mucus membranes moist Cardiovascular: regular rate and rhythm with normal S1S2, no murmur, positive posterior tibial pulses bilaterally, and cap refill < 2 seconds. Lungs: Respirations even, regular, and unlabored on room air. Lungs CTA bilaterally, no rhonchi, no rales, no wheezing, and no accessory muscle usage. Abdominal: soft, nontender to palpation, no guarding, no appreciable organomegaly Ext: ROM intact. No gross muscle atrophy, no edema, no contractures Neuro: Speech clear, face symmetrical and CN II-XII grossly intact with no noted focal neuro deficits Psych: Alert and oriented to person, place, time, and situation. Appropriate and pleasant affect. A total of 32 minutes of time were spent preparing this complex discharge summary. Pt was discharged on 10/12/24 at 11:29 AM Patient was seen independently by Nurse Practitioner. This document was prepared using [employer] dictation software. Please allow for errors in deck cadet while rare they do occur. Luis Enrique Levi, COMPLIANCE ATTORNEY rendered care for this patient independently, reviewed the findings and plan as documented in the note above. I did not physically speak with or examine the patient on this date. Patient Condition at Discharge: Stable Plan - Discharge Summary Discharge Rx Participant: No New Discharge Prescriptions: New Meclizine [Antivert] 25 mg PO TID PRN #30 tab PRN Reason: Vertigo Continue Fluticasone Propion/Salmeterol [Advair 250-50 Diskus] 1 puff INHALATION RT- BID PRN PRN Reason: Shortness Of Breath Levothyroxine Sodium [Synthroid] 75 mcg PO DAILY Multivit-Min/Iron/Folic/Lutein [Centrum Silver Women Tablet] 1 tab PO DAILY Albuterol Inhaler [Ventolin Hfa Inhaler] 2 puff INHALATION RT-QID PRN PRN Reason: Shortness Of Breath Venlafaxine HCl [Effexor XR] 75 mg PO DAILY Calcium Carbonate [Calcium] 1,200 mg PO HS Rosuvastatin Calcium [Crestor] 5 mg PO HS Magnesium Oxide [Mag-Ox] 400 mg PO HS Fluticasone Nasal [place] [Flonase Nasal [place]] 2 spr EA NOSTRIL BID PRN PRN Reason: Allergy Symptoms amLODIPine [Norvasc] 5 mg PO DAILY Enalapril [Vasotec] 20 mg PO HS Prevagen 1 cap PO DAILY Co Q-10 100mg 100 mg PO HS Montelukast [Singulair] 10 mg PO DAILY Cetirizine HCl 10 mg PO DAILY Flaxseed Oil 1000mg 1,000 mg PO DAILY Discharge Medication List Fluticasone Propion/Salmeterol [Advair 250-50 Diskus] 1 puff INHALATION RT-BID PRN 01/19/15 [History] Levothyroxine Sodium [Synthroid] 75 mcg PO DAILY 01/19/15 [History] Albuterol Inhaler [Ventolin Hfa Inhaler] 2 puff INHALATION RT-QID PRN 12/22/16 [History] Multivit-Min/Iron/Folic/Lutein [Centrum Silver Women Tablet] 1 tab PO DAILY 12/22/16 [History] Venlafaxine HCl [Effexor XR] 75 mg PO DAILY 06/12/19 [History] Calcium Carbonate [Calcium] 1,200 mg PO HS 06/14/20 [History] Montelukast [Singulair] 10 mg PO DAILY 02/02/24 [History] Rosuvastatin Calcium [Crestor] 5 mg PO HS 03/17/24 [History] Cetirizine HCl 10 mg PO DAILY 10/10/24 [History] Co Q-10 100mg 100 mg PO HS 10/10/24 [History] Enalapril [Vasotec] 20 mg PO HS 10/10/24 [History] Flaxseed Oil 1000mg 1,000 mg PO DAILY 10/10/24 [History] Fluticasone Nasal [place] [Flonase Nasal [place]] 2 spr EA NOSTRIL BID PRN 10/10/24 [History] Magnesium Oxide [Mag-Ox] 400 mg PO HS 10/10/24 [History] Prevagen 1 cap PO DAILY 10/10/24 [History] amLODIPine [Norvasc] 5 mg PO DAILY 10/10/24 [History] Meclizine [Antivert] 25 mg PO TID PRN #30 tab 10/12/24 [Rx] Follow up Appointment(s)/Referral(s): Omari Castellanos MD [Primary Care Provider] - 1-2 days Patient Instructions/Handouts: Vertigo (DC) Activity/Diet/Wound Care/Special Instructions: Activity: As tolerated. Take breaks as needed. As discussed, recommend changing positions slowly from lying to sitting, sitting before standing, and standing before walking. Diet: Heart healthy and carb consistent diet. Special Instructions: Take all of your medications as directed and remember to keep all of your doctor's appointments and follow-up as needed. Thank you for allowing us to participate in your care, it was truly a pleasure having you for our patient!!! Discharge Disposition: HOME SELF-CARE
--- NOTE | 2024-10-12 14:14 | P.PN ---
Subjective Progress Note Date: 10/12/24 I am followed up with the patient and she feels her dizziness is improving compared to yesterday. Denies any new neurological issues Objective - Vital Signs Vital signs: Vital Signs Temp 97.8 F 10/12/24 07:00 Pulse 66 10/12/24 07:00 Resp 15 10/12/24 07:00 BP 136/82 10/12/24 07:00 Pulse Ox 99 10/12/24 07:00 FiO2 Intake & Output 10/11/24 10/12/24 10/12/24 18:59 06:59 18:59 Intake Total 118 Balance 118 Weight 61.235 kg Intake: Oral 118 Other: # Voids 1 - Exam GENERAL: The patient is lying in bed and is not in acute distress. NEUROLOGICAL: Higher mental function: The patient is awake, alert, oriented to self, place and time. Patient is following commands. No aphasia and no neglect. Cranial nerves: The pupils are round, equal and reactive to light and accommodation. Visual young are full to confrontation throughout. Extraocular movement is subtle horizontal nystagmus looking to far left. Facial sensation is normal to touch throughout. The facial strength is normal throughout. Hearing is normal bilaterally to hand rub. Tongue is midline and moved [id number] without any difficulty. No dysarthria is noted. Shoulder shrug is normal bilaterally. Motor: The strength is 5 over 5 throughout. Normal tone and bulk. Cerebellum: Normal finger to nose bilaterally. Sensation: Sensation is normal to touch throughout. Reflexes (right/left): 2+ throughout. Plantars are downgoing bilaterally. Some of the workup during this hospital visit consisted of: I reviewed lab workup. CT of the head is reported as no acute intracranial process. Patchy periventricular white matter ischemic type changes with atrophy. I personally reviewed the CT and agree there is no acute or subacute stroke. CT angiography of the head and neck is reported as no flow-limiting stenosis bilateral carotid bifurcation. Normal [place] of [place]. MRI of the brain is reported as no MRI evidence for recent infarct. - Labs CBC & Chem 7: 10/10/24 16:07 10/10/24 16:07 Assessment and Plan Assessment: This is an 84-year-old woman who presents the emergency department because of dizziness with nausea that started yesterday around 3 AM. Patient does not have any focal deficit. She feels dizziness is improving. Acute vertigo and is peripheral. MRI Brain is negative for acute or subacute stroke or any enhancement--clinically improvement. Hypertension Plan: Yesterday I changed the meclizine from 25 mg 4 times daily as needed to 25 mg 3 times daily scheduled for 7 days and after that as needed Patient continues to have dizziness then recommend patient follow-up with ENT as an outpatient clinic vestibular rehab therapy PT and OT are consulted Primary team started the patient on aspirin 81 mg and Lipitor 10 mg nightly. Will defer the rest of the medical management to primary other specialist Plan discussed with the patient and primary team. There is no further neurological work-up. Will sign off. Please reconsult if needed. Time with Patient: Less than 30
[2024-10-12 14:23] VITALS: BP 116/62; PULSE 61; RESP 16; TEMP 98.8
== END 2024-10-12 13:13 | disposition home or self-care (01) ==
LOC: EC 15:09 → 6NMEDSUR 19:46
PROVIDERS: ADMIT Student in an Organized Health Care Education/Training Program; ATTEND Student in an Organized Health Care Education/Training Program
DX: R42 Dizziness and giddiness (principal); R51.9 Headache, unspecified; R11.0 Nausea; G31.9 Degenerative disease of nervous system, unspecified; I67.82 Cerebral ischemia; R74.01 Elevation of levels of liver transaminase levels; E03.9 Hypothyroidism, unspecified; E78.5 Hyperlipidemia, unspecified; F32.A Depression, unspecified; F41.9 Anxiety disorder, unspecified; I10 Essential (primary) hypertension; J45.30 Mild persistent asthma, uncomplicated; M41.9 Scoliosis, unspecified; Z79.890 Hormone replacement therapy; Z79.899 Other long term (current) drug therapy; Z82.3 Family history of stroke; Z82.49 Family history of ischemic heart disease and other diseases of the circulatory system; Z88.2 Allergy status to sulfonamides
CPT/HCPCS: 96372; 96360; 96361 ×2; 99285; 36415; 93005; 93306; 80061; 80053; 84443; 82607; 84484; 85025; 85610; 85730; 83036; 71046; 70496; 70450; 70498; 70553; G0378 ×3; J1650; Q9967; A9585